=== PATIENT | female | born 1975 | race Two or more races ===

== ENCOUNTER → 2020-03-23 15:18 | Outpatient (BNVA) | payer OTHER, SELFPAY | PROVIDERS: PCP Internal Medicine; Referring Provider Internal Medicine; Visit Provider Nurse Practitioner | DX: R13.10 Dysphagia, unspecified (principal); J32.8 Other chronic sinusitis; R06.83 Snoring | CPT/HCPCS: 99212 ==

== ENCOUNTER 2020-05-09 07:46 | Outpatient (REF) | payer OTHER, SELFPAY ==
[2020-05-09 09:20] LABS: Alanine Aminotransferase 14 U/L (0-31); Albumin Level 3.9 g/dL (3.5-5.0); Alkaline Phosphatase 104 U/L (39-117); Anion Gap 10 (12-20); Aspartate Amino Transferase 17 U/L (5-31); Bilirubin Total 0.4 mg/dL (0.0-1.0); Blood Urea Nitrogen 10 mg/dL (9-16); Calcium 8.3 mg/dL (8.4-10.2); Carbon Dioxide 26 mmol/L (22-29); Chloride 105 mmol/L (96-108); Cholesterol 201 mg/dL; Estimated Glomerular Filt Rate > 60; Glucose Fasting 143 mg/dL (60-99); HDL Cholesterol 62 mg/dL; LDL Cholesterol Calculated 126 mg/dl; Potassium 4.2 mmol/l (3.3-5.1); Sodium 137 mmol/L (135-145); Triglycerides 67 mg/dL
== END 2020-05-09 07:47 | disposition home or self-care (01) ==
LOC: HO.LAB 07:46
PROVIDERS: Visit Provider Internal Medicine
DX: E78.00 Pure hypercholesterolemia, unspecified (principal)
CPT/HCPCS: 80053; 80061

== ENCOUNTER 2020-07-13 15:25 | Outpatient (REF) | payer OTHER, SELFPAY ==
[2020-07-16 11:41] LABS: C. trachomatis RNA TMA NOT DETECTED (NOT DETECTED); N. gonorrhoeae RNA TMA NOT DETECTED (NOT DETECTED)
== END 2020-07-13 15:26 | disposition home or self-care (01) ==
LOC: HO.LAB 15:25
PROVIDERS: Visit Provider Advanced Practice Midwife
DX: Z01.419 Encounter for gynecological examination (general) (routine) without abnormal findings (principal); Z20.2 Contact with and (suspected) exposure to infections with a predominantly sexual mode of transmission
CPT/HCPCS: 36415; 87491; 87591

== ENCOUNTER 2020-08-10 12:55 | Outpatient (REF) | payer OTHER, SELFPAY | END 2020-08-10 12:56 | disposition home or self-care (01) | LOC: HO.LNP 12:55 | PROVIDERS: PCP Internal Medicine; Visit Provider Surgery | DX: D17.20 Benign lipomatous neoplasm of skin and subcutaneous tissue of unspecified limb (principal); Z79.899 Other long term (current) drug therapy; Z87.891 Personal history of nicotine dependence | CPT/HCPCS: 11402; 88304; 99202 ==

== ENCOUNTER → 2020-08-24 14:21 | Outpatient (BNVA) | payer OTHER, SELFPAY | PROVIDERS: PCP Internal Medicine; Visit Provider Surgery | DX: Z48.817 Encounter for surgical aftercare following surgery on the skin and subcutaneous tissue (principal); Z87.2 Personal history of diseases of the skin and subcutaneous tissue | CPT/HCPCS: 99212 ==

== ENCOUNTER 2020-10-30 08:05 | Outpatient (REF) | payer OTHER, SELFPAY ==
--- NOTE | 2020-10-30 08:16 | ECG_ITS ---
Test Reason : CP Blood Pressure : / mmHG Vent. Rate : 065 BPM Atrial Rate : 065 BPM P-R Int : 136 ms QRS Dur : 098 ms QT Int : 390 ms P-R-T Axes : 016 001 014 degrees QTc Int : 405 ms Normal sinus rhythm Incomplete right bundle branch block Borderline ECG When compared to the previous EKG of Incomplete right bundle branch block noted Referred By: Eva Mtz Electronically Signed By:TERESITA ALBERT MD
[2020-10-30 09:14] LABS: Alanine Aminotransferase 17 U/L (0-31); Albumin Level 3.9 g/dL (3.5-5.0); Alkaline Phosphatase 100 U/L (39-117); Anion Gap 10 (12-20); Aspartate Amino Transferase 16 U/L (5-31); Bilirubin Total 0.7 mg/dL (0.0-1.0); Blood Urea Nitrogen 13 mg/dL (9-16); Calcium 8.9 mg/dL (8.4-10.2); Carbon Dioxide 24 mmol/L (22-29); Chloride 107 mmol/L (96-108); Cholesterol 228 mg/dL; Estimated Glomerular Filt Rate > 60; Glucose Fasting 186 mg/dL (60-99); HDL Cholesterol 50 mg/dL; LDL Cholesterol Calculated 158 mg/dl; Potassium 4.4 mmol/L (3.3-5.1); Sodium 137 mmol/L (135-145); Total Protein 6.8 g/dL (6.5-8.0); Triglycerides 101 mg/dL
== END 2020-10-30 08:06 | disposition home or self-care (01) ==
LOC: HO.LAB 08:05
PROVIDERS: PCP Internal Medicine; Visit Provider Internal Medicine
DX: E78.5 Hyperlipidemia, unspecified (principal); R07.9 Chest pain, unspecified
CPT/HCPCS: 36415; 80053; 80061; 93005

== ENCOUNTER 2020-11-02 07:26 | Outpatient (REF) | payer OTHER, SELFPAY ==
--- NOTE | ~2020-11-02 | MM_ITS ---
EXAMINATION: MM SCREENING DIGITAL BREAST TOMOSYNTHESIS, BILATERAL CLINICAL INFORMATION: Screening. Asymptomatic. The lifetime risk of breast cancer based on the Tyrer-Cuzick Model is 9.1%. COMPARISON: Mammography: October 30, 2018 and studies dating back to August 18, 2015 TECHNIQUE: Digital breast tomosynthesis is performed in both the craniocaudal and mediolateral oblique views along with computer-aided detection (CAD). Synthesized 2D images are generated from the tomosynthesis. FINDINGS: The breasts are heterogeneously dense, which may obscure small masses (ACR BI-RADS breast composition Category c). There are no significant masses, abnormal calcifications, or other abnormalities. MM/MM tomosynthesis screening BI IMPRESSION: There are no significant changes from prior study. ASSESSMENT: BI-RADS 1: Negative RECOMMENDATION: Routine annual mammography screening. This patient's information was entered into a reminder system with a target due date for their next mammogram.
== END 2020-11-02 07:27 | disposition home or self-care (01) ==
LOC: HO.MAMMO 07:26
PROVIDERS: PCP Internal Medicine; Visit Provider Advanced Practice Midwife
DX: Z12.31 Encounter for screening mammogram for malignant neoplasm of breast (principal)
CPT/HCPCS: 77063; 77067

== ENCOUNTER 2021-06-06 08:30 | Outpatient (REF) | payer OTHER, SELFPAY ==
[2021-06-06 09:44] LABS: Alanine Aminotransferase 23 U/L (0-31); Albumin Level 4.1 g/dL (3.5-5.0); Alkaline Phosphatase 106 U/L (39-117); Anion Gap 9 (12-20); Aspartate Amino Transferase 18 U/L (5-31); Bilirubin Total 0.7 mg/dL (0.0-1.0); Blood Urea Nitrogen 10 mg/dL (9-16); Calcium 9.5 mg/dL (8.4-10.2); Carbon Dioxide 29 mmol/L (22-29); Chloride 103 mmol/L (96-108); Cholesterol 274 mg/dL; Estimated Glomerular Filt Rate > 60; Glucose Fasting 164 mg/dL (60-99); HDL Cholesterol 62 mg/dL; LDL Cholesterol Calculated 190 mg/dl; Potassium 4.2 mmol/L (3.3-5.1); Sodium 137 mmol/L (135-145); Total Protein 7.7 g/dL (6.5-8.0); Triglycerides 110 mg/dL
[2021-06-06 10:53] LABS: Microalbum/Creatinine Ratio Ur 5.6 ug/mg cr
[2021-06-10 14:51] LABS: Vitamin D 25-OH, D2 <4 ng/mL; Vitamin D 25-OH, D3 15 ng/mL; Vitamin D 25-OH, Total 15 ng/mL (30-100)
== END 2021-06-06 08:31 | disposition home or self-care (01) ==
LOC: HO.LAB 08:30
PROVIDERS: PCP Internal Medicine; Visit Provider Internal Medicine
DX: R07.9 Chest pain, unspecified (principal); E78.5 Hyperlipidemia, unspecified; E55.9 Vitamin D deficiency, unspecified; E11.9 Type 2 diabetes mellitus without complications
CPT/HCPCS: 36415; 80053; 80061; 82043; 82306

== ENCOUNTER 2022-01-07 09:24 | Outpatient (REF) | payer OTHER, SELFPAY ==
[2022-01-07 10:21] LABS: Alanine Aminotransferase 17 U/L (0-31); Albumin Level 3.8 g/dL (3.5-5.0); Alkaline Phosphatase 92 U/L (39-117); Anion Gap 13 (12-20); Aspartate Amino Transferase 14 U/L (5-31); Bilirubin Total 0.4 mg/dL (0.0-1.0); Blood Urea Nitrogen 10 mg/dL (9-16); Calcium 8.6 mg/dL (8.4-10.2); Carbon Dioxide 24 mmol/L (22-29); Chloride 105 mmol/L (96-108); Cholesterol 202 mg/dL; Estimated Glomerular Filt Rate > 60; Glucose Fasting 189 mg/dL (60-99); HDL Cholesterol 57 mg/dL; LDL Cholesterol Calculated 128 mg/dl; Potassium 4.4 mmol/L (3.3-5.1); Sodium 138 mmol/L (135-145); Total Protein 6.7 g/dL (6.5-8.0); Triglycerides 85 mg/dL
[2022-01-07 10:41] LABS: Vitamin D 25-OH Total 18.7 ng/mL (>30)
== END 2022-01-07 09:25 | disposition home or self-care (01) ==
LOC: HO.LAB 09:24
PROVIDERS: PCP Internal Medicine; Visit Provider Internal Medicine
DX: E78.5 Hyperlipidemia, unspecified (principal); E55.9 Vitamin D deficiency, unspecified; E11.69 Type 2 diabetes mellitus with other specified complication; E66.9 Obesity, unspecified
CPT/HCPCS: 36415; 80053; 80061; 82306

== ENCOUNTER 2022-03-11 13:21 | Outpatient (REF) | payer OTHER, SELFPAY ==
[2022-03-11 14:44] LABS: Microalbum/Creatinine Ratio Ur 4.1 ug/mg cr
== END 2022-03-11 13:22 | disposition home or self-care (01) ==
LOC: HO.LAB 13:21
PROVIDERS: PCP Internal Medicine; Visit Provider Internal Medicine
DX: E11.9 Type 2 diabetes mellitus without complications (principal)
CPT/HCPCS: 82043

== ENCOUNTER 2022-04-01 09:24 | Outpatient (REF) | payer OTHER, SELFPAY ==
[2022-04-01 17:14] LABS: CT PCR NOT DETECTED (Not Detect.); NG PCR NOT DETECTED (Not Detect.)
[2022-04-02 10:30] LABS: BV Int Neg Control Negative (Negative); BV Int Pos Control Positive (Positive)
[2022-04-04 02:06] LABS: HPV mRNA E6/E7 rflx Not Detected (Not Detected)
== END 2022-04-01 09:25 | disposition home or self-care (01) ==
LOC: HO.LNP 09:24
PROVIDERS: Visit Provider Advanced Practice Midwife
DX: Z01.419 Encounter for gynecological examination (general) (routine) without abnormal findings (principal); Z11.51 Encounter for screening for human papillomavirus (HPV)
CPT/HCPCS: 87480; 87491; 87510; 87591; 87624; 87660; 88142

== ENCOUNTER 2022-04-10 14:23 | Outpatient (REF) | payer OTHER, SELFPAY ==
--- NOTE | ~2022-04-10 | MM_ITS ---
EXAMINATION: MM DIAGNOSTIC DIGITAL BREAST TOMOSYNTHESIS, BILATERAL US DIAGNOSTIC ULTRASOUND BREAST, BILATERAL CLINICAL INFORMATION: Due for yearly. 4 month history pain superior left breast. 3 mm palpable area below nipple right breast on clinical exam. The lifetime risk of breast cancer based on the Tyrer-Cuzick Model is 7%. COMPARISON: Mammography: 11/02/2020, 10/30/2018, 09/26/2016 TECHNIQUE: Digital breast tomosynthesis is performed in both the craniocaudal and mediolateral oblique views along with computer-aided detection (CAD). Synthesized 2D images are generated from the tomosynthesis. Additional right rolled CC x2 views are obtained. Ultrasound bilateral breasts is performed targeted to the areas of clinical concern. Grayscale imaging and color Doppler are performed without and with harmonics. FINDINGS: There are scattered areas of fibroglandular density (ACR BI-RADS breast composition Category b). There are no significant masses, abnormal calcifications, or other abnormalities. Parenchymal pattern is similar to prior studies. There is no developing density or architectural abnormality. The axilla and skin contours are unremarkable. No skin thickening or coarsening of the Faisal's ligaments. No significant changes. Ultrasound bilateral breasts demonstrate no cystic or solid mass, architectural abnormality, or focal duct ectasia. No skin thickening or edema tracking in soft tissue planes. Results are discussed with the patient at time of visit. MM/MM tomosynthesis diagnostic BI IMPRESSION: -No mammographic evidence of malignancy or inflammatory changes. -Unremarkable bilateral targeted breast ultrasound. ASSESSMENT: BI-RADS 1: Negative RECOMMENDATION: 1. Patient's clinical findings should be managed based on the clinical impression. If there is clinical concern for persistent palpable abnormality, further evaluation may be considered with surgical consult. Decision to proceed with biopsy should be based on clinical grounds and degree of clinical concern. 2. Otherwise, routine annual screening mammography. This patient's information was entered into a reminder system with a target due date for their next mammogram.
== END 2022-04-10 14:24 | disposition home or self-care (01) ==
LOC: HO.MAMMO 14:23
PROVIDERS: Visit Provider Advanced Practice Midwife
DX: N64.4 Mastodynia (principal)
CPT/HCPCS: 76642; 77062; 77066

== ENCOUNTER 2022-05-06 12:45 | Outpatient (REF) | payer OTHER, SELFPAY ==
--- NOTE | ~2022-05-06 | US_ITS ---
EXAMINATION: US PELVIS CLINICAL INFORMATION: Enlarged uterus; the last menstrual period was on 04/19/2022. COMPARISON: Pelvic ultrasound dated 04/30/2018. TECHNIQUE: Ultrasound of the pelvis is performed using both transabdominal and transvaginal transducers along with Doppler. Transvaginal imaging is performed due to inadequate visualization transabdominally. Imaging is limited by body habitus and overlapping bowel gas. FINDINGS: Uterus: The uterus is anteverted and measures 11.9 x 4.9 x 7.3 cm. The double wall endometrial thickness is 2.2 cm. The uterus is smooth in contour and has normal myometrial echogenicity. FIBROIDS: There are 2 fibroids seen. 1. Location: Leftward uterine body, myometrial. Size: 1.3 x 1.1 x 1.5 cm. Prior: 1.3 x 1.5 x 1.1 cm. Fibroid characteristics: Heterogeneously hypoechoic. 2. Location: Posterior fundus, myometrial. Size: 1.9 x 2.0 x 2.4 cm. Fibroid characteristics: Heterogeneously hypoechoic. Adnexa: Both ovaries are visualized. There is normal color flow to the adnexa. There is no ovarian torsion. There is no pelvic ascites or fluid collection. Right ovary measures 2.3 x 1.7 x 2.4 cm, volume 5.1 mL. Left ovary measures 2.3 x 1.7 x 2.1 cm, volume 4.3 mL. US/US pelvic and transvaginal IMPRESSION: 1. There are uterine fibroids, as detailed. 2. There is abnormal thickening of the endometrial stripe to 2.1 cm. Gynecology evaluation and management are recommended, with consideration for tissue sampling, if clinically indicated.
[2022-05-06 14:41] LABS: Alanine Aminotransferase 20 U/L (0-31); Albumin Level 4.2 g/dL (3.5-5.0); Alkaline Phosphatase 99 U/L (39-117); Anion Gap 11 (12-20); Aspartate Amino Transferase 18 U/L (5-31); Bilirubin Total 0.5 mg/dL (0.0-1.0); Blood Urea Nitrogen 8 mg/dL (9-16); Calcium 9.6 mg/dL (8.4-10.2); Carbon Dioxide 26 mmol/L (22-29); Chloride 102 mmol/L (96-108); Cholesterol 267 mg/dL; Estimated Glomerular Filt Rate > 60; Glucose Fasting 144 mg/dL (60-99); HDL Cholesterol 59 mg/dL; LDL Cholesterol Calculated 184 mg/dl; Sodium 135 mmol/L (135-145); Total Protein 7.2 g/dL (6.5-8.0); Triglycerides 123 mg/dL; Vitamin D 25-OH Total 43.2 ng/mL (>30)
[2022-05-06 14:43] LABS: Syphilis Screen Nonreactive (Nonreactive)
[2022-05-07 08:26] LABS: HBsAGNum1 0.35 S/CO (0.00-0.99); HIV AB/AG Nonreactive (Nonreactive); HIV Num 1 0.22 S/CO (0.00-0.99); Hepatitis B Surface Antigen Negative (Negative); ~HepC Num1 0.09 S/CO (0.00-0.79); ~Hepatitis C Antibody Nonreactive (Nonreactive)
== END 2022-05-06 12:46 | disposition home or self-care (01) ==
LOC: HO.HMGCX 12:45
PROVIDERS: Absent Provider Internal Medicine; PCP Internal Medicine; Referring Provider Advanced Practice Midwife; Visit Provider Obstetrics & Gynecology
DX: Z11.4 Encounter for screening for human immunodeficiency virus [HIV] (principal); Z11.3 Encounter for screening for infections with a predominantly sexual mode of transmission; N85.2 Hypertrophy of uterus; E11.69 Type 2 diabetes mellitus with other specified complication; E66.01 Morbid (severe) obesity due to excess calories; Z68.41 Body mass index [BMI] 40.0-44.9, adult; E78.5 Hyperlipidemia, unspecified; E55.9 Vitamin D deficiency, unspecified; Z87.42 Personal history of other diseases of the female genital tract
CPT/HCPCS: 36415; 76830; 76856; 80053; 80061; 82306; 86780; 86803; 87340; 87389

== ENCOUNTER → 2022-05-15 12:51 | Outpatient (BNVA) | payer OTHER, SELFPAY | PROVIDERS: PCP Internal Medicine; Referring Provider Internal Medicine; Visit Provider Surgery | DX: N63.10 Unspecified lump in the right breast, unspecified quadrant (principal); D17.24 Benign lipomatous neoplasm of skin and subcutaneous tissue of left leg | CPT/HCPCS: 99202 ==

== ENCOUNTER 2022-05-20 16:39 | Emergency (ER) | payer OTHER, SELFPAY ==
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
[2022-05-20 16:54] VITALS: BP 145/85; BP 150/96; PULSE 102; PULSE 94; RESP 16; TEMP 36.4; O2SAT 100; O2SAT 98; BMI 39.6
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
== END 2022-05-20 20:00 | disposition home or self-care (01) ==
PROVIDERS: Emergency Provider Internal Medicine; PCP Internal Medicine
DX: S09.90XA Unspecified injury of head, initial encounter (principal); V43.52XA Car driver injured in collision with other type car in traffic accident, initial encounter; M79.10 Myalgia, unspecified site; Y93.89 Activity, other specified; Y92.410 Unspecified street and highway as the place of occurrence of the external cause; Y99.9 Unspecified external cause status
CPT/HCPCS: 70450; 70486; 72125; 73000; 73030; 99283; 99284

== ENCOUNTER → 2022-06-18 14:25 | Outpatient (BNVA) | payer OTHER, SELFPAY | PROVIDERS: PCP Internal Medicine; Visit Provider Advanced Practice Midwife | DX: Z32.02 Encounter for pregnancy test, result negative (principal); N85.2 Hypertrophy of uterus | CPT/HCPCS: 81025 ==

== ENCOUNTER 2022-07-02 07:46 | Outpatient (REF) | payer OTHER, SELFPAY ==
[2022-07-04 11:34] LABS: HPV mRNA E6/E7 rflx Not Detected (Not Detected)
== END 2022-07-02 07:47 | disposition home or self-care (01) ==
LOC: HO.LNP 07:46
PROVIDERS: PCP Internal Medicine; Visit Provider Obstetrics & Gynecology
DX: N93.9 Abnormal uterine and vaginal bleeding, unspecified (principal)
CPT/HCPCS: 58100; 87624; 88142; 88305; 99212

== ENCOUNTER 2022-07-02 08:48 | Outpatient (REF) | payer OTHER, SELFPAY ==
[2022-07-02 09:37] LABS: Hematocrit 39.4 % (37.0-47.0); Hemoglobin 12.9 g/dl (12.0-16.0); Mean Corpuscular HGB Conc 32.7 g/dl (31.0-35.0); Mean Corpuscular Hemoglobin 28.4 pg (27.0-33.0); Mean Corpuscular Volume 86.8 fL (80.0-98.0); Mean Platelet Volume 10.3 fL (9.4-12.3); Platelet Count 280 X10*3/uL (160-400); Red Blood Count 4.54 X10*6/uL (4.20-5.50); Red Cell Distribution Width 13.1 % (11.0-16.0); White Blood Count 8.8 X10*3/uL (4.8-10.8)
[2022-07-02 10:45] LABS: HCG Quantitative < 2 mIU/mL; TSH reflex Free T4 3.79 uIU/mL (0.32-4.0)
[2022-07-02 15:13] LABS: CT PCR NOT DETECTED (Not Detect.); NG PCR NOT DETECTED (Not Detect.)
== END 2022-07-02 08:49 | disposition home or self-care (01) ==
LOC: HO.LAB 08:48
PROVIDERS: Visit Provider Obstetrics & Gynecology
DX: N93.9 Abnormal uterine and vaginal bleeding, unspecified (principal); Z11.3 Encounter for screening for infections with a predominantly sexual mode of transmission
CPT/HCPCS: 0353U; 84443; 84702; 85027

== ENCOUNTER → 2022-07-25 15:00 | Outpatient (BNVA) | payer OTHER, SELFPAY | PROVIDERS: PCP Internal Medicine; Visit Provider Obstetrics & Gynecology | DX: N93.9 Abnormal uterine and vaginal bleeding, unspecified (principal); D25.9 Leiomyoma of uterus, unspecified | CPT/HCPCS: 99212 ==

== ENCOUNTER 2023-02-03 07:25 | Outpatient (REF) | payer OTHER, SELFPAY ==
[2023-02-03 08:43] LABS: Alanine Aminotransferase 9 U/L (0-31); Albumin Level 3.9 g/dL (3.5-5.0); Alkaline Phosphatase 92 U/L (39-117); Anion Gap 12 (12-20); Aspartate Amino Transferase 11 U/L (5-31); Bilirubin Total 0.3 mg/dL (0.0-1.0); Blood Urea Nitrogen 11 mg/dL (9-16); Calcium 9.1 mg/dL (8.4-10.2); Carbon Dioxide 25 mmol/L (22-29); Chloride 108 mmol/L (96-108); Cholesterol 172 mg/dL (<200); Estimated Glomerular Filt Rate > 60; Glucose Fasting 133 mg/dL (60-99); HDL Cholesterol 37 mg/dL (>40); LDL Cholesterol Calculated 109 mg/dL (<100); Potassium 3.6 mmol/L (3.3-5.1); Sodium 141 mmol/L (135-145); Total Protein 6.9 g/dL (6.5-8.0); Triglycerides 132 mg/dL (<150)
== END 2023-02-03 07:26 | disposition home or self-care (01) ==
LOC: HO.LAB 07:25
PROVIDERS: PCP Internal Medicine; Visit Provider Internal Medicine
DX: E55.9 Vitamin D deficiency, unspecified (principal); E78.5 Hyperlipidemia, unspecified
CPT/HCPCS: 36415; 80053; 80061; 82306

== ENCOUNTER 2023-02-03 17:07 | Outpatient (AMB) | payer OTHER, SELFPAY ==
[2023-02-03 17:09] VITALS: BP 122/84; BMI 34.6
--- NOTE | 2023-02-03 17:09 | A.OFFPC_ITS ---
Vital Signs 02/03/23 17:09 Height 5 ft 2 in Weight 189 lb BMI 34.6 BP 122/84 Blood Pressure Location Lt brachial Position Sitting Intake Visit Reasons: physical Intake Note: Patient here for a physical exam, c/o abdminal pain Technical Services Specialist Required: No Accompanied by: Self / Same As Patient Allergies aspirin [ASPIRIN] Allergy (Intermediate, Verified 02/03/23 17:18) SWELLING, anaphylaxis/swelling naproxen [NAPROXEN] Allergy (Intermediate, Verified 02/03/23 17:18) LIP SWELLING, swelling Medication List - Last Reconciled 02/03/23 by Eva Mtz MD acetaminophen (Tylenol Extra Strength) 500 mg PO Q6H PRN atorvastatin 40 mg PO BEDTIME 90 days azelastine 2 sprays intranasal BID blood sugar diagnostic (FreeStyle Lite Strips) Use 1 test strip once a day blood-glucose meter (FreeStyle Lite Meter kit) As directed cholecalciferol (vitamin D3) 50 mcg PO DAILY 90 days cyclobenzaprine 10 mg PO DAILY dulaglutide (Trulicity) 0.75 mg (0.5 mL) subcut QWEEK 30 days lancets (FreeStyle Lancets) Use 1 lancet once a day lidocaine 5% (Lidoderm) 1 patch topical DAILY PRN MDD remove after 12 hours metformin 500 mg PO BID 90 days omeprazole 20 mg PO DAILY 90 days triamcinolone acetonide 0.5% 1 appl topical DAILY 30 days Tobacco use date assessed: 08/26/22 Dental Screening Dental Screen Date: 02/03/23 Did you have a dental visit in the last 12 months?: Yes Did you have a dental problem in the last 6 months where you did not have access to dental care?: No Was dental information given to patient?: Patient has dentist HPI HPI Comments History of Present Illness Details This is a 47-year-old female with diabetes mellitus type 2 that comes for her physical exam. A1c within goal. LDL not on goal and I will increase atorvastatin from 40 mg to 80 mg. Mammogram done March 2022 and was normal. Pap smear done June 2022 and was normal with HPV negative. Has never had a colonoscopy and will order Cologuard. No chest pain or shortness of breath. Complains of abdominal pain that is diffuse but more prominent in right upper quadrant.. [facility] Medical History Lipoma of thigh Mild recurrent major depression Severe obesity with body mass index (BMI) of 35.0 to 39.9 with comorbidity Diabetes mellitus type 2 in obese Chest pain Lipoma of arm History of abnormal cervical Pap smear Morbid obesity with BMI of 40.0-44.9, adult Impaired glucose tolerance Dyslipidemia Surgical History S/P tubal ligation History of esophagogastroduodenoscopy (EGD) (~2019) Family History Father HTN (hypertension) Mother Diabetes Arthritis of knee Cancer Paternal Grandfather Heart attack Paternal Aunt Cancer Maternal Uncle Cancer Social History Household Members: Children Household Members Other:: daughter and son Housing: Apartment Alcohol intake: former Patient Tobacco Use Status: Former Tobacco user Tobacco use type: Cigarette Years Smoked: 25 years e-Cigarette/Vaping Use: Never Used Second Hand Smoke Exposure: Yes service: No Current occupational status: employed Current occupational exposures/hazards: No Cognitive needs: No Hearing needs: No Vision needs: No Female Reproductive History Menstrual Age of Menarche: 12 Questionnaire Thrive Questionnaire Date Thrive assessed: 08/26/22 ODALYS-7 AMB Questionnaire ODALYS-7 Date ODALYS - 7 assessed: 08/26/22 Source: Developed by Drs. Gaurav Mcintyre, Karen Israel, Krystian Adams and colleagues, with an educational sukh from [employer]. Review of Systems Const All systems reviewed & are unremarkable except as noted in HPI and below Eyes Reports no additional complaints, Denies change in vision and Denies other visual disturbances Card Denies chest pain at rest, Denies chest pain with activity, Denies edema, Denies irregular heart rhythm, Denies claudication, Denies dyspnea, Denies dyspnea on exertion, Denies orthopnea, Denies paroxysmal nocturnal dyspnea and Denies slow heart rate Resp Denies cough, Denies dyspnea and Denies dyspnea on exertion GI Denies abdominal pain, Denies change in bowel habits, Denies excessive flatus, Denies nausea and Denies vomiting Denies urinary incontinence, Denies urinary hesitancy and Denies urinary urgency Musc Denies abnormal gait, Denies atrophy, Denies deformity and Denies limited range of motion Skin/Breast Denies bleeding lesions, Denies changing lesions and Denies rash Neuro Denies abnormal gait and Denies lack of coordination Physical exam (Primary Care) Vital Signs: Last Vital Signs BP 122/84 02/03/23 17:09 BMI result Body Mass Index 34.6 Tobacco/Smoking Status: Tobacco use Status Tobacco use date assessed 08/26/22 02/03/23 17:13 Patient Tobacco Use Status Former Tobacco user 02/03/23 17:13 Tobacco use type Cigarette 02/03/23 17:13 e-Cigarette/Vaping Use Never Used 02/03/23 17:13 Thrive Assessment: Date of Thrive Assessment Date Thrive assessed 08/26/22 02/03/23 17:13 Const Orientation/consciousness: patient oriented x3 HENMT Head: Yes normal to inspection, Yes normocephalic and Yes atraumatic Ears: external ears normal Mouth: lip normal Eyes General: appearance normal, both eyes and all related structures Eyelids: Yes eyelids normal Conjunctivae: conjunctivae normal Neck Neck: Yes normal visual inspection and Yes supple Resp Effort & Inspection: normal respiratory effort Auscultation: clear to auscultation bilaterally Cardio Jugular venous distension: no JVD Rate: regular rate Rhythm: regular rhythm Heart sounds: S1 normal heart sound present and S2 normal heart sound present GI Inspection: Yes normal to inspection Palpation (GI): Soft to palpation and nontender Auscultation: normal bowel sounds Skin General skin exam: no rashes or lesions noted Neuro General: patient oriented x3 and no focal motor deficits Extrem General: Yes full ROM Psych Appearance: grossly normal Results AMB Hemoglobin A1c AMB Hemoglobin A1c 5.6 % Last Edit by GILDA Hartley on 02/03/23 17:2 8 Results Reviewed Results Reviewed: Laboratory Last Values Hgb A1c (Clinic) 5.6 % (4.0-6.0) 02/03/23 17:23 Assessment and Plan Assessment & Plan (1) Physical exam: Code(s): Z00.00 - Encounter for general adult medical examination without abnormal findings Plan: Repeat in a year (2) Diabetes mellitus type 2 in obese: Code(s): E11.69 - Type 2 diabetes mellitus with other specified complication; E66.9 - Obesity, unspecified Plan: Continue metformin and Trulicity. A1c goal is equal or less than 7%. Orders: Orders AMB Hemoglobin A1c Today E11.69 - Type 2 diabetes mellitus with other specified complication, E66.9 - Obesity, unspecified US abdomen complete Today R10.9 - Unspecified abdominal pain Lipid Panel 4 Months E78.5 - Hyperlipidemia, unspecified Microalbumin, Random (w Creat) 4 Months E11.9 - Type 2 diabetes mellitus without complications Vitamin D 25-OH Total 4 Months E55.9 - Vitamin D deficiency, unspecified Comprehensive [place]. Panel Fast 4 Months R10.9 - Unspecified abdominal pain Referrals Cologuard Test Z12.11 - Encounter for screening for malignant neoplasm of colon, Z12.12 - Encounter for screening for malignant neoplasm of rectum Medications: New atorvastatin 80 mg PO BEDTIME 90 tabs 0RF 90 days Discontinued atorvastatin Discontinued Reason: Duplicate 40 mg PO BEDTIME 90 tabs 1RF 90 days Coding Level of Care Code Est Pt Prev Care 40-64y(92440) Diagnoses Physical exam Z00.00 Diabetes mellitus type 2 in obese E11.69; E66.9 Time Spent (min) 30
== END 2023-02-03 17:30 | disposition home or self-care (01) ==
PROVIDERS: PCP Internal Medicine; Visit Provider Internal Medicine
DX: Z00.00 Encounter for general adult medical examination without abnormal findings (principal); E11.69 Type 2 diabetes mellitus with other specified complication; E66.9 Obesity, unspecified; Z68.34 Body mass index [BMI] 34.0-34.9, adult
CPT/HCPCS: 83036; 99396

== ENCOUNTER 2023-02-19 12:58 | Emergency (ER) | payer OTHER, SELFPAY ==
--- NOTE | ~2023-02-19 | CT_ITS ---
EXAMINATION: CT ABDOMEN AND PELVIS WITH CONTRAST CLINICAL INFORMATION: Abdominal pain COMPARISON: Previous CT of the abdomen and pelvis most recent June 2017 and pelvic ultrasound April 2022 TECHNIQUE: Multidetector volumetric images were obtained from the superior aspect of the liver through the pubic symphysis following administration 85 mL of Omnipaque 350 intravenous contrast. Sagittal and coronal reformatted images were obtained on the technologist's workstation. Oral contrast: Yes This CT examination was performed using dose optimization techniques as appropriate, variously including the following: *Automated exposure control *Adjustment of mA and/or kV according to patient size (this includes techniques or standardized protocols for targeted exams where dose is matched to indication/reason for exam; i.e. extremities or head) *Use of iterative reconstruction technique DLP: 647 mGy-cm FINDINGS: LUNG BASES: The visualized lung bases are unremarkable. LIVER, GALLBLADDER, AND BILIARY TREE: The liver is normal in size, shape, and attenuation. No focal hepatic lesion or biliary ductal dilatation is present. The gallbladder has been removed. PANCREAS: Unremarkable. SPLEEN: Unremarkable. ADRENAL GLANDS: Unremarkable. KIDNEYS AND URETERS: The kidneys are normal in size, shape, and attenuation. No hydronephrosis, hydroureter, or calculi seen. No perinephric stranding. BLADDER: Not optimally distended GASTROINTESTINAL TRACT: Diverticulosis of the colon. No evidence diverticulitis. The small and large bowel are otherwise unremarkable. The appendix is unremarkable. ABDOMINAL WALL: No significant hernia is appreciated. LYMPH NODES: Normal. VASCULAR: Unremarkable. PELVIC VISCERA: Prominent heterogeneous uterus probably representing fibroids. Upper normal thickness endometrium measuring 1.6 cm. Adnexa are unremarkable. OSSEOUS STRUCTURES: Unremarkable. CT/CT abdomen pelvis w IV con IMPRESSION: No acute findings. Diverticulosis. Fibroid uterus. Fleischner guidelines were followed.
[2023-02-19 13:17] VITALS: BP 126/78; PULSE 72; RESP 16; TEMP 36.6; O2SAT 98; BMI 33.7
--- NOTE | 2023-02-19 13:17 | ED.ABDPAIN ---
HPI - Abdominal Pain General Chief Complaint: Abdominal Pain Stated Complaint: Stomach Pain Time Seen by Provider: 02/19/23 16:03 Source: patient Mode of arrival: ambulatory Limitations: no limitations History of Present Illness HPI narrative: Patient is a 47-year-old female who presents emergency department for evaluation of abdominal pain with nausea and vomiting. Onset of symptoms was 1 week ago. She has a history of diabetes she has been on metformin for some time and does attribute having some abdominal discomfort at baseline due to metformin. However she did also began taking Trulicity 2 weeks ago. Reports primarily upper abdominal pain with nausea and in vomiting, on able to tolerate oral intake. Denies hematemesis, lower abdominal pain, constipation, diarrhea, hematochezia, melena, genitourinary symptoms. She denies fevers, chills, chest pain, shortness of breath, difficulty breathing. Related Data Home Medications Medication Instructions Recorded Confirmed azelastine 137 mcg (0.1 %) nasal 2 spray intranasal BID 06/12/20 02/03/23 spray aerosol cyclobenzaprine 10 mg tablet 10 mg PO DAILY 06/12/20 02/03/23 Previous Rx's Medication Instructions Recorded blood sugar diagnostic (FreeStyle #100 ea 06/26/21 Lite Strips) blood-glucose meter (FreeStyle #1 ea 06/26/21 Lite Meter kit) lancets 28 gauge (FreeStyle #100 ea 06/26/21 Lancets) omeprazole 20 mg capsule,delayed 20 mg PO DAILY 90 days #90 caps 06/26/21 release triamcinolone acetonide 0.5 % 1 appl topical DAILY 30 days #15 01/22/22 topical cream grams cholecalciferol (vitamin D3) 50 50 mcg PO DAILY 90 days #90 caps 03/27/22 mcg (2,000 unit) capsule acetaminophen 500 mg tablet 500 mg PO Q6H PRN fever or pain 05/20/22 (Tylenol Extra Strength) #14 tabs lidocaine 5 % topical patch 1 patch topical DAILY PRN pain #30 05/20/22 (Lidoderm) ea metformin 500 mg tablet 500 mg PO BID 90 days #180 tabs 06/14/22 dulaglutide 0.75 mg/0.5 mL 0.75 mg (0.5 mL) subcut QWEEK 30 12/19/22 subcutaneous pen injector days #2.5 mL (Trulicity) atorvastatin 80 mg tablet 80 mg PO BEDTIME 90 days #90 tabs 02/03/23 ondansetron 4 mg disintegrating 4 mg PO Q8H PRN nausea and 02/19/23 tablet vomiting #14 tabs Allergies Allergy/AdvReac Type Severity Reaction Status Date / Time aspirin [ASPIRIN] Allergy Intermediate SWELLING, Verified 02/19/23 13:21 anaphylaxis/swelling naproxen [NAPROXEN] Allergy Intermediate LIP Verified 02/19/23 13:21 SWELLING, swelling Review of Systems Review of Systems Yes all other systems are reviewed and are negative [facility] Past Medical History Attestation statement: The following information was validated with the patient. Source: old records reviewed Medical History Lipoma of thigh Mild recurrent major depression Severe obesity with body mass index (BMI) of 35.0 to 39.9 with comorbidity Diabetes mellitus type 2 in obese Chest pain Lipoma of arm History of abnormal cervical Pap smear Morbid obesity with BMI of 40.0-44.9, adult Impaired glucose tolerance Dyslipidemia Surgical History S/P tubal ligation History of esophagogastroduodenoscopy (EGD) (~2019) Family History Family History Father HTN (hypertension) Mother Diabetes Arthritis of knee Cancer Paternal Grandfather Heart attack Paternal Aunt Cancer Maternal Uncle Cancer Social History Social History Household Members: Children Household Members Other:: daughter and son Housing: Apartment Alcohol intake: current Alcohol intake frequency: holidays/special occasions only Patient Tobacco Use Status: Former Tobacco user Tobacco use type: Cigarette Years Smoked: 25 years Smoked in Last 30 Days: Yes e-Cigarette/Vaping Use: Never Used Second Hand Smoke Exposure: Yes Use of substances other than those prescribed or required for medical reasons: Yes Substance Use Type: Marijuana Advance Directives: No Advance Directives Information Provided: No service: No Current occupational status: employed Current occupational exposures/hazards: No Cognitive needs: No Hearing needs: No Vision needs: No Physical Exam ED Vital Signs: Vital Signs - 24 hr 02/19/23 13:17 02/19/23 16:03 Temperature 98 F Pulse Rate 72 59 Respiratory Rate 16 18 Blood Pressure 126/78 147/94 H Pulse Oximetry 98 99 Oxygen Delivery Method Room Air Room Air BMI result Body Mass Index 33.7 Appearance: Alert.?Oriented to person, place and time. No acute distress.?Normal affect. Eyes: Pupils equal, round and reactive to light.? ENT: Pharynx normal.?? Neck: Normal inspection.? Neck supple.?? CVS: Heart sounds normal. Normal heart rate and rhythm.? Pulses normal.?? Respiratory: No respiratory distress.? Lung sounds clear to auscultation bilaterally?? Abdomen: Soft with upper abdominal tenderness, lower abdomen benign. No rigidity. No guarding. No rebound tenderness. Negative Juan sign. Normoactive bowel sounds. No pulsatile mass.?? Skin: Skin warm and dry.? Normal skin color.? Extremities: No lower extremity edema.? Neuro: Moves all extremities spontaneously. Sensation intact bilaterally. Ambulates with normal steady gait. Course Course Course Narrative: RME:?47 yo F pmhx diabetes, HDL, fibromyalgia presents today diffuse abd pain, nausea, nonbloody emesis x1 week. Reports 10/10 pain. hx of cholecystectomy. No sick contacts. No etoh use. Abd soft, diffusely TTP. No rebound or guarding. +BS. Labs, UA, u preg, ct abd/pelvis Full HPI, ROS and PE to be performed by the primary ED provider. Reevaluation(s) Reevaluation #1: CT of the abdomen is without acute abnormality diverticulosis but no evidence of diverticulitis, fibroid uterus present. Reviewed these findings with patient. Symptoms most likely related to Trulicity verses gastritis or viral syndrome. Tolerating fluids and crackers while in the emergency department. Advised conservative treatment rest, hydration, bland diet, outpatient follow-up with her primary care provider. Reviewed worrisome signs and symptoms that would warrant re-evaluation in the emergency department. All questions answered. Stable for discharge. Time: 18:09 Medical Decision Making Medical Decision Making MDM Narrative: Patient is a 47-year-old female with past medical history of hyperlipidemia, fibro myalgia, obesity, type 2 diabetes, GERD presenting to emergency department for evaluation of abdominal pain with nausea/vomiting. At the time my examination she is overall well appearing but does appear to have discomfort particularly upon palpation of the abdomen as per physical examination. She is afebrile without tachycardia. She has no respiratory distress. Reviewed labs obtained prior to my evaluation CBC reveals no leukocytosis, no anemia, CMP is unremarkable and within normal limits, lipase within normal limits. Urinalysis without evidence of infection or microscopic hematuria, urine appears concentrated which is likely due to dehydration with persistent nausea and vomiting. CT of the abdomen and pelvis has been ordered but not yet obtained. I believe that the recent addition of Trulicity may be attributing to her symptoms however she does have notable tenderness upon examination. Will trial 1 L normal saline IV, Zofran IV, and morphine IV. Differential Diagnosis Differential Diagnoses: The differential diagnosis associated with the presentation includes (Medication side effect, gastritis, GERD, PUD, cholecystitis, cholelithiasis, pancreatitis. Less likely appendicitis, diverticulitis, colitis, bowel obstruction, mesenteric ischemia) Admission/Observation Consideration of admission/observation: Escalation of care including admission/observation considered (I considered admission for abdominal pain, see course narrative for further detail) Lab Data MDM Lab Attestation statement: I reviewed the patient's lab results. (See narrative above for further detail) 02/19/23 14:26 02/19/23 14:26 Labs: Lab Results 02/19/23 Range/Units 14:26 WBC 9.0 (4.8-10.8) X10*3/uL RBC 4.94 (4.20-5.50) X10*6/uL Hgb 14.9 (12.0-16.0) g/dl Hct 43.1 (37.0-47.0) % MCV 87.2 (80.0-98.0) fL MCH 30.2 (27.0-33.0) pg MCHC 34.6 (31.0-35.0) g/dl RDW 13.0 (11.0-16.0) % Plt Count 257 (160-400) X10*3/uL MPV 10.4 (9.4-12.3) fL Immature Gran % (Auto) 0.2 (0.0-0.4) % Neut % (Auto) 57.8 (45-73) % Lymph % (Auto) 30.3 (20-40) % [place] % (Auto) 9.8 (2-11) % Eos % (Auto) 1.6 (0-4) % Baso % (Auto) 0.3 (0-2) % Lymph # (Auto) 2.7 (1.2-4.9) X10*3/uL [place] # (Auto) 0.9 (0.1-1.2) X10*3/uL Eos # (Auto) 0.1 (0.0-0.4) X10*3/uL Baso # (Auto) 0.0 (0.0-0.2) X10*3/uL Abs Immat Gran (auto) 0.02 (0.00-0.03) X10*3/uL Absolute Neuts (auto) 5.2 (2.0-8.3) x10*3/uL Absolute Nucleated RBC 0.000 (0.0-0.012) X10*3/uL Nucleated RBC % (auto) 0.0 (0.0-0.2) /100WBC Sodium 139 (135-145) mmol/L Potassium 3.8 (3.3-5.1) mmol/L Chloride 104 (96-108) mmol/L Carbon Dioxide 26 (22-29) mmol/L Anion Gap 13 (12-20) BUN 9 (9-16) mg/dL Creatinine 0.82 (0.5-1.4) mg/dL Estim Creat Clear Calc 84.9 Estimated GFR > 60 Random Glucose 112 (60-115) mg/dL Calcium 9.7 D (8.4-10.2) mg/dL Magnesium 2.1 (1.6-2.6) mg/dL Total Bilirubin 0.6 (0.0-1.0) mg/dL AST 16 (5-31) U/L ALT 13 (0-31) U/L Alkaline Phosphatase 110 (39-117) U/L Total Protein 7.9 (6.5-8.0) g/dL Albumin 4.4 (3.5-5.0) g/dL Lipase 53 (8-78) U/L Urine Color Dark Yellow Urine Appearance Cloudy Urine pH 5.5 (5.0-9.0) Ur Specific [place] >= 1.030 H (1.005-1.025) Urine Protein 30 (1+) H (Neg-Trace) mg/dL Urine Glucose (UA) Negative (Negative) mg/dL Urine Ketones 15 (Negative) mg/dL Urine Blood Negative (Negative) Urine Nitrite Negative (Negative) Ur Leukocyte Esterase Negative (Negative) Urine RBC 0-2 (0-2) /HPF Urine WBC 0-5 (0-5) /HPF Ur Squamous Epith Cells 3-5 (0-2) /HPF Urine Bacteria Trace (None Seen) Hyaline Casts 3-5 (0-2) /LPF Urine Test NEGATIVE (NEGATIVE) Radiology Impression Discussion of test interpretation with radiology: I have reviewed the radiologist's reading. Radiologist Impression: CT/CT abdomen pelvis w IV con IMPRESSION: No acute findings. Diverticulosis. Fibroid uterus. Fleischner guidelines were followed. Independent Historian Clinical information obtained from an independent historian. History obtained from or confirmed by: Other (Daughter present at bedside who confirms history) External Record Review External record reviewed: Outpatient record and Prior outpatient labs Medications Administered Discontinued Medications Generic Name Dose Route Start Last Admin Trade Name Freq PRN Reason Stop Dose Admin Sodium Chloride 1,000 mls @ 999 mls/hr 02/19/23 16:30 02/19/23 16:37 Ns IV 02/19/23 17:30 999 mls/hr .Q1H1M MAYRA Administration Iohexol 100 ml 02/19/23 16:46 02/19/23 16:47 Iohexol 350 Mg/Ml 100 Ml Infus..Btl IV 02/19/23 16:47 85 ml ONCE ONE Administration Morphine Sulfate 2 mg 02/19/23 16:21 02/19/23 16:37 Morphine Sulfate 2 Mg/Ml Cartridge IVPUSH 02/19/23 16:22 2 mg ONCE ONE Administration Protocol Ondansetron HCl 4 mg 02/19/23 16:21 02/19/23 16:37 Ondansetron Hcl 4 Mg/2 Ml Vial IVPUSH 02/19/23 16:22 4 mg ONCE ONE Administration Discharge Plan Discharge Clinical Impression: Abdominal pain Patient Disposition: Home, Self-Care Instructions: Abdominal Pain (ED) Additional Instructions: As discussed the CT scan overall normal today. Nothing to suggest a cause for your symptoms. It is possible that the may be in relation to a stomach virus, gastritis, or common side effects from or recently starting Trulicity. Please contact your primary care provider to arrange for a follow-up visit. Please be sure to rest, drink plenty of fluids, and follow a bland diet. Introduce a bland diet including crackers, bananas, rice, soup, toast, and boiled vegetables. This may progress to plain baked or boiled chicken or turkey. Avoid dairy products or foods high in fat or grease. You may return back to emergency department any new or worsening symptoms or concerns. Prescriptions: New ondansetron 4 mg tablet,disintegrating 4 mg PO Q8H PRN (Reason: nausea and vomiting) Qty: 14 0RF No Action triamcinolone acetonide 0.5 % cream 1 appl topical DAILY 30 Days Qty: 15 3RF metformin 500 mg tablet 500 mg PO BID 90 Days Qty: 180 1RF Trulicity 0.75 mg/0.5 mL pen injector 0.75 mg subcut QWEEK 30 Days Qty: 2.5 6RF acetaminophen [Tylenol Extra Strength] 500 mg tablet 500 mg PO Q6H PRN (Reason: fever or pain) Qty: 14 0RF lidocaine [Lidoderm] 5 % adhesive patch,medicated 1 patch topical DAILY MDD remove after 12 hours PRN (Reason: pain) Qty: 30 0RF Rx Instructions: leave on most painful area for up to 12 hrs cyclobenzaprine 10 mg tablet 10 mg PO DAILY azelastine 137 mcg (0.1 %) aerosol,spray 2 spray intranasal BID omeprazole 20 mg capsule,delayed release(DR/EC) 20 mg PO DAILY 90 Days Qty: 90 1RF (DME) blood-glucose meter [FreeStyle Lite Meter] Kit See Rx Instructions .Route Qty: 1 0RF Rx Instructions: As directed (DME) FreeStyle Lite Strips Strip See Rx Instructions .Route Qty: 100 3RF Rx Instructions: Use 1 test strip once a day (DME) lancets [FreeStyle Lancets] 28 gauge misc See Rx Instructions .Route Qty: 100 3RF Rx Instructions: Use 1 lancet once a day atorvastatin 80 mg tablet 80 mg PO BEDTIME 90 Days Qty: 90 0RF cholecalciferol (vitamin D3) 50 mcg (2,000 unit) capsule 50 mcg PO DAILY 90 Days Qty: 90 0RF Referrals: Eva Reid MD [Primary Care Provider] -
[2023-02-19 14:33] LABS: MANUAL DIFF FLAG NO
[2023-02-19 14:34] LABS: Basophils Percent Auto 0.3 % (0-2); Eosinophils Absolute Auto 0.1 X10*3/uL (0.0-0.4); Eosinophils Percent Auto 1.6 % (0-4); Hematocrit 43.1 % (37.0-47.0); Hemoglobin 14.9 g/dl (12.0-16.0); Imm Gran Abs Auto 0.02 X10*3/uL (0.00-0.03); Imm Gran Pct Auto 0.2 % (0.0-0.4); Lymphocytes Absolute Auto 2.7 X10*3/uL (1.2-4.9); Lymphocytes Percent Auto 30.3 % (20-40); Mean Corpuscular HGB Conc 34.6 g/dl (31.0-35.0); Mean Corpuscular Hemoglobin 30.2 pg (27.0-33.0); Mean Corpuscular Volume 87.2 fL (80.0-98.0); Mean Platelet Volume 10.4 fL (9.4-12.3); Monocytes Absolute Auto 0.9 X10*3/uL (0.1-1.2); Monocytes Percent Auto 9.8 % (2-11); Neutrophils Absolute Auto 5.2 x10*3/uL (2.0-8.3); Neutrophils Percent Auto 57.8 % (45-73); Platelet Count 257 X10*3/uL (160-400); Red Blood Count 4.94 X10*6/uL (4.20-5.50)
[2023-02-19 14:36] LABS: Appearance Urine Cloudy; Color Urine Dark Yellow; Glucose Urine UA Negative (Negative); Leukocyte Esterase Urine Negative (Negative); Nitrite Urine Negative (Negative); PH 5.5 (5.0-9.0); Specific Gravity - Urine >= 1.030 (1.005-1.025); UMIC TRIGGER UACC YES; Urine Blood Negative (Negative); Urine Ketones 15 mg/dL (Negative); Urine Protein 30 (1+) mg/dL (Neg-Trace)
[2023-02-19 14:37] LABS: UPreg QC Valid YES; Urine Pregnancy NEGATIVE (NEGATIVE)
[2023-02-19 14:48] LABS: Alanine Aminotransferase 13 U/L (0-31); Albumin Level 4.4 g/dL (3.5-5.0); Alkaline Phosphatase 110 U/L (39-117); Anion Gap 13 (12-20); Aspartate Amino Transferase 16 U/L (5-31); Bilirubin Total 0.6 mg/dL (0.0-1.0); Blood Urea Nitrogen 9 mg/dL (9-16); Calcium 9.7 mg/dL (8.4-10.2); Carbon Dioxide 26 mmol/L (22-29); Chloride 104 mmol/L (96-108); Creatinine Clr Calc Pharmacy 84.9; Estimated Glomerular Filt Rate > 60; Glucose Random 112 mg/dL (60-115); Lipase 53 U/L (8-78); Magnesium 2.1 mg/dL (1.6-2.6); Potassium 3.8 mmol/L (3.3-5.1); Sodium 139 mmol/L (135-145); Total Protein 7.9 g/dL (6.5-8.0)
[2023-02-19 15:13] LABS: Bacteria Urine Trace (None Seen); RBC Urine 0-2 /HPF (0-2); WBC Urine 0-5 /HPF (0-5)
[2023-02-19 16:03] VITALS: BP 147/94; PULSE 59; RESP 18; O2SAT 99
--- NOTE | 2023-02-19 16:16 | PC.NURSE ---
pt a&ox3. respirations even and unlabored. pt reports left and right upper abdominal pain for one week. pt reports nausea with one episode of vomiting. pt denies blood in vomit. pt reports being constipated and reports moving bowels this morning a very small hard amount. pt abdomen soft but tender tot ouch in the upper right, left and epigastric quadrants. 20 placed in pt right AC at this time.
[2023-02-19] MEDS: 0.9 % Sodium Chloride 1,000 ML 999 ML IV (16:37)
[2023-02-19] MEDS: Morphine Sulfate 2 MG/ML CARTRIDGE IVPUSH (16:37)
[2023-02-19] MEDS: ondansetron HCL 4 MG/2 ML VIAL IVPUSH (16:37)
[2023-02-19] MEDS: iohexoL 350 MG/ML 100 ML INFUS..BTL IV (16:47)
[2023-02-19 18:52] VITALS: BP 129/77; PULSE 66; RESP 18; O2SAT 99
== END 2023-02-19 18:53 | disposition home or self-care (01) ==
PROVIDERS: Physician Assistant Medical; Emergency Provider Emergency Medicine; PCP Internal Medicine
DX: R10.9 Unspecified abdominal pain (principal); R11.2 Nausea with vomiting, unspecified; M79.7 Fibromyalgia; Z79.899 Other long term (current) drug therapy; Z87.891 Personal history of nicotine dependence; Z79.4 Long term (current) use of insulin
CPT/HCPCS: 36415; 74177; 80053; 81001; 81025; 83690; 83735; 85025; 96361; 96374; 96375; 99284; J2270; J2405; Q9967

== ENCOUNTER 2023-02-20 12:58 | Outpatient (AMB) | payer OTHER, SELFPAY ==
--- NOTE | 2023-02-20 13:13 | MHC.OFFVIS ---
Intake Vital Signs 02/20/23 13:18 Height 5 ft 2 in Weight 188 lb BMI 34.4 BP 117/60 Blood Pressure Location Rt brachial Position Sitting Pulse 77 Intake Visit Reasons: re-discuss exc. lipoma of thigh Intake Note: This patient presents for an assessment to re-discuss excision lipoma of thigh. Patient c/o; denies new complaints at this time. Folder Taper Operator Required: Yes Folder Taper Operator Language: Patent Law Specialist Name: Nikita Information Interpreted: non-clinical & clinical Accompanied by: Self / Same As Patient Allergies aspirin [ASPIRIN] Allergy (Intermediate, Verified 02/20/23 13:19) SWELLING, anaphylaxis/swelling naproxen [NAPROXEN] Allergy (Intermediate, Verified 02/20/23 13:19) LIP SWELLING, swelling Medication List - Last Reconciled 02/20/23 by Anderosn Knott MD acetaminophen (Tylenol Extra Strength) 500 mg PO Q6H PRN atorvastatin 80 mg PO BEDTIME 90 days azelastine 2 sprays intranasal BID blood sugar diagnostic (FreeStyle Lite Strips) Use 1 test strip once a day blood-glucose meter (FreeStyle Lite Meter kit) As directed cholecalciferol (vitamin D3) 50 mcg PO DAILY 90 days cyclobenzaprine 10 mg PO DAILY dulaglutide (Trulicity) 0.75 mg (0.5 mL) subcut QWEEK 30 days lancets (FreeStyle Lancets) Use 1 lancet once a day lidocaine 5% (Lidoderm) 1 patch topical DAILY PRN MDD remove after 12 hours metformin 500 mg PO BID 90 days omeprazole 20 mg PO DAILY 90 days ondansetron 4 mg PO Q8H PRN triamcinolone acetonide 0.5% 1 appl topical DAILY 30 days HPI re-discuss exc. lipoma of thigh HPI Details She has this lipoma on the thigh that she I had seen in her for in the past. She now wants to proceed with excision. She describes pain on this area. She also says that she has a similar lump on the left buttock which she wants removed as well. She otherwise denies any other significant complaints. [facility] Medical History (Updated 02/20/23 @ 13:44 by Anderson Knott MD) Multiple lipomas Lipoma of thigh Mild recurrent major depression Severe obesity with body mass index (BMI) of 35.0 to 39.9 with comorbidity Diabetes mellitus type 2 in obese Chest pain Lipoma of arm History of abnormal cervical Pap smear Morbid obesity with BMI of 40.0-44.9, adult Impaired glucose tolerance Dyslipidemia Surgical History S/P tubal ligation History of esophagogastroduodenoscopy (EGD) (~2019) Family History Father HTN (hypertension) Mother Diabetes Arthritis of knee Cancer Paternal Grandfather Heart attack Paternal Aunt Cancer Maternal Uncle Cancer Social History Household Members: Children Household Members Other:: daughter and son Housing: Apartment Alcohol intake: current Alcohol intake frequency: holidays/special occasions only Patient Tobacco Use Status: Former Tobacco user Tobacco use type: Cigarette Years Smoked: 25 years e-Cigarette/Vaping Use: Never Used Second Hand Smoke Exposure: Yes Substance Use Type: Marijuana service: No Current occupational status: employed Current occupational exposures/hazards: No Cognitive needs: No Hearing needs: No Vision needs: No Female Reproductive History Menstrual Age of Menarche: 12 Review of Systems Const Denies chills and Denies fever(s) Card Denies chest pain, Denies dyspnea and Denies dyspnea on exertion Resp Denies cough, Denies dyspnea and Denies dyspnea on exertion GI Denies hematochezia and Denies change in bowel habits Details: Vaginal bleeding Denies hematuria Musc Denies back pain and Denies limited range of motion Neuro Denies focal weakness and Denies convulsions Psych Denies depression and Denies mood swings Physical Exam Vital Signs: Last Vital Signs Pulse 77 02/20/23 13:18 BP 117/60 02/20/23 13:18 BMI result Body Mass Index 34.4 Const General: comfortable and no acute distress Orientation/consciousness: patient oriented x3 Neck Neck: Yes no lymphadenopathy Resp Auscultation: clear to auscultation bilaterally Cardio Rhythm: regular rhythm GI Palpation (GI): Soft to palpation, nontender and no guarding Neuro General: patient oriented x3 Extrem Other: Left anterior thigh with a lipomatous mass, about 1.5 cm in size; similar size mass on the lateral aspect of the left buttock as well Assessment & Plan Assessment & Plan (1) Multiple lipomas: Code(s): D17.9 - Benign lipomatous neoplasm, unspecified Plan: She wants these 2 lipomas removed. I explained to her the technique of excision under local anesthesia. I discussed the risks including but not limited to bleeding, infections poor healing. She wants to proceed This will be scheduled on her next visit here in the office. Coding Level of Care Code Est Pt Level 3 (63020) Diagnoses Multiple lipomas D17.9
[2023-02-20 13:18] VITALS: BP 117/60; PULSE 77; BMI 34.4
== END 2023-02-20 13:44 | disposition home or self-care (01) ==
PROVIDERS: PCP Internal Medicine; Visit Provider Surgery
DX: D17.9 Benign lipomatous neoplasm, unspecified (principal)
CPT/HCPCS: 99213

== ENCOUNTER → 2023-02-20 12:58 | Outpatient (BNVA) | payer OTHER, SELFPAY | PROVIDERS: PCP Internal Medicine; Visit Provider Surgery | DX: D17.24 Benign lipomatous neoplasm of skin and subcutaneous tissue of left leg (principal); D17.1 Benign lipomatous neoplasm of skin and subcutaneous tissue of trunk | CPT/HCPCS: 99212 ==

== ENCOUNTER 2023-02-24 11:30 | Outpatient (REF) | payer OTHER, SELFPAY ==
--- NOTE | ~2023-02-24 | US_ITS ---
EXAMINATION: US ABDOMEN COMPLETE CLINICAL INFORMATION: Unspecified abdominal pain. COMPARISON: CT abdomen and pelvis with contrast 02/19/2023. TECHNIQUE: Real-time imaging of the abdominal viscera. FINDINGS: PANCREAS: Normal. ABDOMINAL AORTA: The proximal, mid, and distal segments are normal in caliber. INFERIOR VENA CAVA: Visualized portions are normal. LIVER: The liver is normal in size. The liver contour is normal. There is diffuse increased liver parenchymal echogenicity, consistent with hepatic steatosis. No focal hepatic lesion. There is no intrahepatic biliary duct dilatation seen. GALLBLADDER: Surgically absent. COMMON BILE DUCT: Normal in caliber measuring 0.3 cm in diameter. RIGHT KIDNEY: Normal. No hydronephrosis. No renal calculi or focal parenchymal lesions. The kidney measures 9.7 cm in maximum dimension. LEFT KIDNEY: Normal. No hydronephrosis. No renal calculi or focal parenchymal lesions. The kidney measures 9.5 cm in maximum dimension. SPLEEN: Normal. The spleen measures 9.5 cm in maximum dimension. FREE FLUID: None. US/US abdomen complete IMPRESSION: Hepatic steatosis. No explanation for abdominal pain.
== END 2023-02-24 11:31 | disposition home or self-care (01) ==
LOC: HO.HMGCX 11:30
PROVIDERS: PCP Internal Medicine; Visit Provider Internal Medicine
DX: R10.9 Unspecified abdominal pain (principal)
CPT/HCPCS: 76700

== ENCOUNTER 2023-03-24 12:36 | Outpatient (REF) | payer OTHER, SELFPAY | END 2023-03-24 12:37 | disposition home or self-care (01) | LOC: HO.LNP 12:36 | PROVIDERS: PCP Internal Medicine; Visit Provider Surgery | DX: D17.24 Benign lipomatous neoplasm of skin and subcutaneous tissue of left leg (principal); D17.39 Benign lipomatous neoplasm of skin and subcutaneous tissue of other sites | CPT/HCPCS: 11403; 11404; 88304 ==

== ENCOUNTER 2023-03-24 12:36 | Outpatient (AMB) | payer OTHER, SELFPAY ==
--- NOTE | 2023-03-24 12:52 | MHC.OFFVIS ---
Intake Intake Visit Reasons: excision of lipoma thigh and buttock, LOC Intake Note: This patient presents for in-office procedure for excision of lipoma thigh and buttock. Patient c/o; reports no changes. Vehicle Service Agent Required: Yes Vehicle Service Agent Language: Dialysis Social Worker Name: Nikita Information Interpreted: non-clinical & clinical Accompanied by: Daughter Allergies aspirin [ASPIRIN] Allergy (Intermediate, Verified 03/24/23 12:58) SWELLING, anaphylaxis/swelling naproxen [NAPROXEN] Allergy (Intermediate, Verified 03/24/23 12:58) LIP SWELLING, swelling HPI excision of lipoma thigh and buttock, LOC HPI Details He is here for excision of a lipoma on the left thigh and left buttock [facility] Medical History (Updated 02/20/23 @ 13:44 by Anderson Knott MD) Multiple lipomas Lipoma of thigh Mild recurrent major depression Severe obesity with body mass index (BMI) of 35.0 to 39.9 with comorbidity Diabetes mellitus type 2 in obese Chest pain Lipoma of arm History of abnormal cervical Pap smear Morbid obesity with BMI of 40.0-44.9, adult Impaired glucose tolerance Dyslipidemia Surgical History S/P tubal ligation History of esophagogastroduodenoscopy (EGD) (~2019) Family History Father HTN (hypertension) Mother Diabetes Arthritis of knee Cancer Paternal Grandfather Heart attack Paternal Aunt Cancer Maternal Uncle Cancer Social History Household Members: Children Household Members Other:: daughter and son Housing: Apartment Alcohol intake: current Alcohol intake frequency: holidays/special occasions only Patient Tobacco Use Status: Former Tobacco user Tobacco use type: Cigarette Years Smoked: 25 years e-Cigarette/Vaping Use: Never Used Second Hand Smoke Exposure: Yes Substance Use Type: Marijuana service: No Current occupational status: employed Current occupational exposures/hazards: No Cognitive needs: No Hearing needs: No Vision needs: No Female Reproductive History Menstrual Age of Menarche: 12 Office Procedures Excision Details: The patient had 2 lipomas, 1 on the left anterior thigh and 1 on the left buttock. She was initially placed supine. The area of the lipoma on the anterior thigh on the left was prepped and draped lidocaine 1% was used for local anesthesia. I made an incision on the skin overlying this lipoma using blade 15. This was carried down sharply through the full-thickness of the skin and subcutaneous fat until the lipomas visualized. I sharply dissected the lipoma off the rest of the subcutaneous layer with Metzenbaum scissors until this was delivered and sent as a specimen. This lipoma was about 3.1 cm in diameter. The incision was closed with full-thickness nylon 3-0 simple interrupted sutures The patient was then placed in prone position. The area of the lipoma on the left buttock was prepped and draped. Lidocaine 1% was used for local anesthesia. I made an incision on the skin overlying the lipoma using blade 15. This was carried down sharply through the full-thickness of the skin subcutaneous fat. I dissected the lipoma sharply off the rest of the subcutaneous layer using Metzenbaum scissors. This lipoma was about 2.2 cm in diameter. I closed the incision with full-thickness nylon 3-0 interrupted sutures. Dressings were applied. The procedure was completed. He tolerated procedure well. There were no immediate complications. He was given wound care instructions. 18300-gleob/arms/legs 2.1-3cm 07377-khcna/arms/legs 3.1-4cm Procedure code (CPT) selection complete Assessment & Plan Assessment & Plan (1) Multiple lipomas: Code(s): D17.9 - Benign lipomatous neoplasm, unspecified Plan: Excision of 2 lipomas was done. One was on the left anterior thigh and was 1 on the left buttock. She was given wound care instructions. Will be seen in the office for a postop visit. Coding Level of Care Code New Pt Level 3 (78733) Global (84966) Diagnoses Multiple lipomas D17.9 CPT Codes Trunk/Arms/Legs - CPT: 53496-xownq/arms/legs 2.1-3cm ([id number]) Trunk/Arms/Legs - CPT: 99692-cqzbm/arms/legs 3.1-4cm ([id number])
== END 2023-03-24 13:26 | disposition home or self-care (01) ==
PROVIDERS: PCP Internal Medicine; Visit Provider Surgery
DX: D17.24 Benign lipomatous neoplasm of skin and subcutaneous tissue of left leg (principal); D17.1 Benign lipomatous neoplasm of skin and subcutaneous tissue of trunk
CPT/HCPCS: 11403

== ENCOUNTER 2023-04-07 08:56 | Outpatient (AMB) | payer OTHER, SELFPAY ==
--- NOTE | 2023-04-07 09:13 | A.OFFVIS_ITS ---
Intake Vital Signs 04/07/23 09:18 Height 5 ft 2 in Weight 187 lb 6.287 oz BMI 34.3 BP 120/82 Blood Pressure Location Lt brachial Position Sitting Pulse 72 Intake Visit Reasons: excision of lipoma thigh and buttock, LOC Intake Note: Patient is seen in office for post op assessment post excision of lipoma of the left thigh and buttock. Patient c/o: denies any concerns sutures removed at visit Quarter Inspector Required: No Accompanied by: Self / Same As Patient Allergies aspirin [ASPIRIN] Allergy (Intermediate, Verified 04/07/23 09:18) SWELLING, anaphylaxis/swelling naproxen [NAPROXEN] Allergy (Intermediate, Verified 04/07/23 09:18) LIP SWELLING, swelling HPI excision of lipoma thigh and buttock, LOC HPI Details She had undergone excision of a lipoma from the left thigh and the left buttock area under local anesthesia last 03/24/2023. She is here for a postop visit. She says she is doing well and denies any significant complaints. [facility] Medical History Multiple lipomas Lipoma of thigh Mild recurrent major depression Severe obesity with body mass index (BMI) of 35.0 to 39.9 with comorbidity Diabetes mellitus type 2 in obese Chest pain Lipoma of arm History of abnormal cervical Pap smear Morbid obesity with BMI of 40.0-44.9, adult Impaired glucose tolerance Dyslipidemia Surgical History S/P tubal ligation History of esophagogastroduodenoscopy (EGD) (~2019) Family History Father HTN (hypertension) Mother Diabetes Arthritis of knee Cancer Paternal Grandfather Heart attack Paternal Aunt Cancer Maternal Uncle Cancer Social History Household Members: Children Household Members Other:: daughter and son Housing: Apartment Alcohol intake: current Alcohol intake frequency: holidays/special occasions only Patient Tobacco Use Status: Former Tobacco user Tobacco use type: Cigarette Years Smoked: 25 years e-Cigarette/Vaping Use: Never Used Second Hand Smoke Exposure: Yes Substance Use Type: Marijuana service: No Current occupational status: employed Current occupational exposures/hazards: No Cognitive needs: No Hearing needs: No Vision needs: No Female Reproductive History Menstrual Age of Menarche: 12 Review of Systems Const Denies chills and Denies fever(s) Card Denies chest pain, Denies dyspnea and Denies dyspnea on exertion Resp Denies cough, Denies dyspnea and Denies dyspnea on exertion GI Denies hematochezia and Denies change in bowel habits Denies hematuria Musc Denies back pain and Denies limited range of motion Neuro Denies focal weakness and Denies convulsions Psych Denies depression and Denies mood swings Physical Exam Vital Signs: Last Vital Signs Pulse 72 04/07/23 09:18 BP 120/82 04/07/23 09:18 BMI result Body Mass Index 34.3 Const General: comfortable and no acute distress Extrem Other: excision sites on the left thigh and left buttock areas are both well healed, not infected, sutures intact Assessment & Plan Assessment & Plan (1) Multiple lipomas: Code(s): D17.9 - Benign lipomatous neoplasm, unspecified Plan: status post excision of lipomas from the left thigh and the left buttock. Incisions are well healed. Her path report shows angiolipomas. Her sutures were removed. She can follow up on a p.r.n. basis. Coding Level of Care Code Global (57881) Diagnoses Multiple lipomas D17.9
[2023-04-07 09:18] VITALS: BP 120/82; PULSE 72; BMI 34.3
== END 2023-04-07 09:23 | disposition home or self-care (01) ==
PROVIDERS: PCP Internal Medicine; Visit Provider Surgery
DX: D17.9 Benign lipomatous neoplasm, unspecified (principal)
CPT/HCPCS: 99024

== ENCOUNTER → 2023-04-07 08:56 | Outpatient (BNVA) | payer OTHER, SELFPAY | PROVIDERS: PCP Internal Medicine; Visit Provider Surgery ==

== ENCOUNTER 2025-01-18 18:56 | Emergency (ER) | payer SELFPAY ==
[2025-01-18 19:06] VITALS: BP 132/74; PULSE 81; RESP 16; TEMP 36.8; O2SAT 97; BMI 34.6
--- NOTE | 2025-01-18 19:11 | ED_ITS ---
HPI - General Adult General Chief complaint: Wound/Laceration Stated complaint: cut open pinky Time Seen by Provider: 01/19/25 00:06 Source: patient Mode of arrival: ambulatory Limitations: language barrier ([employer]porate [employer] Manager services utilized) History of Present Illness ED Provider: Abhinav VASQUEZ HPI narrative: The patient is a 49-year-old female presenting to the ED reporting while washing dishes this evening she accidentally broke a glass cup and suffered a laceration to her right pinky finger advancing into the 4th intertriginous space. The patient received Tdap upon arrival to the ED. The patient denies foreign body sensation, denies distal paresthesias or impaired range of motion. Patient denies other acute somatic complaint. Related Data Home Medications ?Medication ?Instructions ?Recorded ?Confirmed azelastine 137 mcg (0.1 %) nasal 2 spray intranasal BI D 06/12/20 02/20/23 spray cyclobenzaprine 10 mg tablet 10 mg PO DAILY 06/12/20 0 02/20/23 Previous Rx's ?Medication ?Instructions ?Recorded blood sugar diagnostic (FreeStyle #100 ea 06/26/21 Lite Strips) blood-glucose meter (FreeStyle #1 ea 06/26/21 Lite Meter kit) lancets 28 gauge (FreeStyle #100 ea 06/26/21 Lancets) omeprazole 20 mg capsule,delayed 20 mg PO DAILY 90 day s #90 caps 06/26/21 release acetaminophen 500 mg tablet 500 mg PO Q6H PRN fever or pain 05/20/22 (Tylenol Extra Strength) #14 tabs cholecalciferol (vitamin D3) 50 50 mcg PO DAILY 90 day s #90 caps 07/19/23 mcg (2,000 unit) capsule atorvastatin 80 mg tablet 80 mg PO BEDTIME 90 days #90 tabs 04/12/24 dulaglutide 0.75 mg/0.5 mL 0.75 mg (0.5 mL) subcut QWE EK 30 04/12/24 subcutaneous pen injector days #2.5 mL (Trulicity) lidocaine 5 % topical patch 1 patch topical DAILY PRN pain #30 04/12/24 (Lidoderm) ea metformin 500 mg tablet 500 mg PO BID 90 days #180 t abs 04/12/24 ondansetron 4 mg disintegrating 4 mg PO Q8H PRN nausea and 11/18/24 tablet vomiting #14 tabs triamcinolone acetonide 0.5 % 1 appl topical DAILY 30 days #15 04/12/24 topical cream grams Allergies Allergy/AdvReac Type Severity Reaction Status Date / Time aspirin (ASPIRIN) Allergy Intermediate SWELLING, Verified 01/18/25 19:07 anaphylaxis/swelling naproxen (NAPROXEN) Allergy Intermediate LIP Verified 01/18/25 19:07 SWELLING, swelling Review of Systems Review of Systems: Yes all other systems are reviewed and are negative [facility] Past Medical History Medical History Multiple lipomas Lipoma of thigh Mild recurrent major depression Severe obesity with body mass index (BMI) of 35.0 to 39.9 with comorbidity Diabetes mellitus type 2 in obese Chest pain Lipoma of arm History of abnormal cervical Pap smear Morbid obesity with BMI of 40.0-44.9, adult Impaired glucose tolerance Dyslipidemia Surgical History S/P tubal ligation History of esophagogastroduodenoscopy (EGD) (~2019) Family History Family History Father HTN (hypertension) Mother Diabetes Arthritis of knee Cancer Paternal Grandfather Heart attack Paternal Aunt Cancer Maternal Uncle Cancer Social History Social History Household Members: Children Household Members Other:: daughter and son Housing: Apartment Alcohol intake: current Alcohol intake frequency: holidays/special occasions only Patient Tobacco Use Status: Former Tobacco user Tobacco use type: Cigarette Years Smoked: 25 years e-Cigarette/Vaping Use: Never Used Second Hand Smoke Exposure: Yes Substance Use Type: Marijuana Advance Directives: No Advance Directives Information Provided: No service: No Current occupational status: employed Current occupational exposures/hazards: No Cognitive needs: No Hearing needs: No Vision needs: No Physical Exam ED Vital Signs: Vital Signs - 24 hr 01/18/25 21:54 01/19/25 01:44 01/19/25 01:44 Temperature 97.8 F 97.8 F Pulse Rate 64 65 65 Respiratory Rate 18 15 15 Blood Pressure 133/86 129/88 129/88 Pulse Oximetry 98 98 98 Oxygen Delivery Method Room Air Room Air Room Air BMI result Body Mass Index 34.6 CONSTITUTIONAL: The patient appears non-toxic, well nourished and in no acute distress. Vital signs as documented. HEAD: Atraumatic, normocephalic. EYES: EOMs grossly intact, pupils equal, conjunctiva clear, no exudate. ENT: Nares patent, no discharge. Airway patent, no audible stridor, visible mucosa is pink and moist without noted lesions. NECK: trachea is midline, no obvious masses or gross abnormalities. CHEST: Symmetric movement, normal appearance. LUNGS: Non-labored work of breathing. CARDIAC: No evidence of hypoperfusion. ABDOMEN: Nondistended, no obvious injury. : Deferred. EXTREMITIES: There is an approximate 2 cm laceration noted to the radial aspect of the right 5th digit advancing towards the palmar surface into the 4th intertriginous space, hemostasis noted, wound is easily retractable with excellent visualization, no obvious visible or palpable foreign bodies. Distal CSM is intact, cap refill less than 2 sec, hemostasis achieved prior to arrival in the ED. Patient moves all other extremities spontaneously without reported pain. No other obvious injury or deformity noted. NEURO: Alert and oriented x3, CN II-XII appear grossly intact. Cerebellar Functioning grossly intact. Speech clear and appropriate. SKIN: Warm, dry, color appropriate. No rashes or lesions noted. Course Course Course Narrative: RME: 49 yold female presents to the ED for lacaeration bethween ring and pinky finger of right hand after cutting finger on glass cup. Will need sutures. Tdap ordered Medications Administered Discontinued Medications Generic Name Dose Route Start Last Admin Trade Name Freq PRN Reason Stop Dose Admin Bacitracin 1 appl 01/19/25 01:32 01/19/25 01:41 Bacitracin Oint 0.9 Gm Packet TOPICAL 01/19/25 01:33 1 appl ONCE ONE Administration Protocol Diphtheria/Tetanus/Acell Pertussis 0.5 ml 01/18/25 19:11 01/18/25 21:57 Diphth,Pertus(Acell),Tet Adult 0.5 Ml Syringe IM 01/18/25 19:12 0.5 ml .ONCE ONE Administration Lidocaine HCl 5 ml 01/19/25 01:36 01/19/25 01:41 Lidocaine Hcl 1 % Mpf 5 Ml Vial INFILTRATI 01/19/25 01:37 5 ml ONCE ONE Administration Procedures Laceration Laceration 1: Site: hand Side (If applicable): right Size (cm): 2 Description: linear and clean Depth: simple, single layer Local Anesthetic: lidocaine 1% Amount of anesthesia used (mL): 4 Pre-repair: wound explored (No visible or palpable FB) and irrigated extensively Skin layer closed with: nylon Size (cm): 4-0 Number of sutures: 4 Technique: simple, interrupted Medical Decision Making Medical Decision Making MDM Narrative: 1:11 AM 01/19/2025 (Glenda VASQUEZ): Patient is a 49-year-old female presenting to the ED for evaluation of a laceration to the right 5th digit advancing into the 4th intertriginous space, no palpable or visible foreign body, no sensation of foreign body. The patient's wound will be repaired, Tdap has been updated. Admission/Observation Consideration of admission/observation: Escalation of care including admission/observation considered Tests considered The following testing was considered but not selected: Hand x-ray Discharge Plan Discharge Clinical Impression: Laceration Patient Disposition: Home, Self-Care Instructions: Laceration (ED) Additional Instructions: Jing por elegir el Departamento de Urgencias del [facility] M?dico [place] para burks atenci?n m?dica hoy. Burks laceraci?n de hoy parece no presentar complicaciones. Se repar? con suturas no absorbibles que deber?n retirarse en 5 a 7 d?as. Por favor, regrese al departamento de urgencias o acuda a burks m?dico de cabecera para que le retiren las suturas. Aplique bacitracina y un ap?sito limpio y seco sobre la laceraci?n dos veces al d?a aimee los primeros 2 a 3 d?as. Despu?s, mantenga la angelo limpia y seca, magaly descubierta y expuesta al aire para que la laceraci?n cicatrice. Si julián es perfectamente aceptable dejar correr agua sobre las suturas mientras se ducha, no nade ni sumerja la laceraci?n en agua estancada hasta que le retiren las suturas. Puede mayra dosis alternas (escalonadas) de ibuprofeno 600 mg y Tylenol 1000 mg cada 4 horas seg?n sea necesario para aliviar el dolor. Por favor, descanse la angelo lesionada y aplique hielo aimee 20 minutos cada hora. Si no tiene un m?dico de cabecera, llame a [facility] [place] al [phone] para asignarle candie nuevo. Mientras espera a que le asignen un nuevo m?dico de cabecera, puede llamar a nuestra Cl?enedina de Atenci?n Sin Amanda Previa al [phone] para necesidades que no daniel de emergencia. Por favor, regrese a urgencias si presenta sangrado incontrolable, reapertura de la herida, enrojecimiento que se extiende m?s de 1 a 2 cm de la herida o secreci?n blanquecina y lechosa. Tambi?n regrese si experimenta cualquier otro s?ntoma o inquietud, ya sea nuevo o que empeore. Thank you for choosing [facility] Emergency Department for your care today. Your laceration today appears uncomplicated. The laceration was repaired with nonabsorbable sutures which will need to be removed in 5-7 days. Please return to the emergency department or follow-up with your primary care provider for removal of sutures. Please apply bacitracin and a clean dry dressing to the laceration twice daily for the first 2-3 days. Then please keep the area clean and dry, but uncovered and exposed to the air to allow the laceration to heal. While it is perfectly acceptable to allow water to run over the sutures while showering, please do not swim, or submerge the laceration in standing water until the sutures are removed. You may take alternating (staggered) doses of ibuprofen 600mg and Tylenol 1000mg every 4 hours as needed for any additional pain. Please rest the injured area, and apply ice for 20 minutes every hour. If you do not have a primary care physician, please call the [facility] [place] at [phone] to establish a new primary care physician. While waiting to establish your new primary care physician, you can call our [facility] at [phone] for non-emergency needs. Please return to the emergency department if you develop any uncontrollable bleeding, re-opening of your wound, redness advancing >1-2 cm away from your wound, or white milky discharge from your wound. Please also return if you experience any other new or worsening symptoms or concerns. Prescriptions: No Action cholecalciferol (vitamin D3) 50 mcg (2,000 unit) capsule 50 mcg PO DAILY 90 Days Qty: 90 0RF atorvastatin 80 mg tablet 80 mg PO BEDTIME 90 Days Qty: 90 0RF Trulicity 0.75 mg/0.5 mL pen injector 0.75 mg subcut QWEEK 30 Days Qty: 2.5 6RF lidocaine [Lidoderm] 5 % adhesive patch,medicated 1 patch topical DAILY MDD remove after 12 hours PRN (Reason: pain) Qty: 30 0RF Rx Instructions: leave on most painful area for up to 12 hrs metformin 500 mg tablet 500 mg PO BID 90 Days Qty: 180 1RF ondansetron 4 mg tablet,disintegrating 4 mg PO Q8H PRN (Reason: nausea and vomiting) Qty: 14 0RF triamcinolone acetonide 0.5 % cream 1 appl topical DAILY 30 Days Qty: 15 3RF acetaminophen [Tylenol Extra Strength] 500 mg tablet 500 mg PO Q6H PRN (Reason: fever or pain) Qty: 14 0RF cyclobenzaprine 10 mg tablet 10 mg PO DAILY azelastine 137 mcg (0.1 %) aerosol,spray 2 spray intranasal BID omeprazole 20 mg capsule,delayed release(DR/EC) 20 mg PO DAILY 90 Days Qty: 90 1RF (DME) blood-glucose meter [FreeStyle Lite Meter] Kit See Rx Instructions .Route Qty: 1 0RF Rx Instructions: As directed (DME) FreeStyle Lite Strips Strip See Rx Instructions .Route Qty: 100 3RF Rx Instructions: Use 1 test strip once a day (DME) lancets [FreeStyle Lancets] 28 gauge misc See Rx Instructions .Route Qty: 100 3RF Rx Instructions: Use 1 lancet once a day Referrals: Physician,Unknown J [Primary Care Provider, Medical] Clinical Impression: Laceration Interventions: ED Discharge Assessment Last Done: 01/19/25 01:44 Discharge Date/Time: 01/19/25 01:45 Print Language: French
[2025-01-18 21:54] VITALS: BP 133/86; PULSE 64; RESP 18; O2SAT 98
[2025-01-18] MEDS: Diphth,Pertus(ACell),Tet Adult 0.5 ML SYRINGE IM (21:57)
[2025-01-19] MEDS: Lidocaine HCl 1 % MPF 5 ML VIAL INFILTRATI (01:41)
[2025-01-19 01:44] VITALS: BP 129/88; PULSE 65; RESP 15; TEMP 36.6; O2SAT 98
== END 2025-01-19 01:45 | disposition home or self-care (01) ==
PROVIDERS: Emergency Provider Emergency Medicine
DX: S61.216A Laceration without foreign body of right little finger without damage to nail, initial encounter (principal); W25.XXXA Contact with sharp glass, initial encounter; Y93.G1 Activity, food preparation and clean up; Y92.9 Unspecified place or not applicable; Y99.9 Unspecified external cause status; E66.01 Morbid (severe) obesity due to excess calories; Z68.39 Body mass index [BMI] 39.0-39.9, adult; R07.9 Chest pain, unspecified; E78.5 Hyperlipidemia, unspecified; Z87.891 Personal history of nicotine dependence
CPT/HCPCS: 12001; 90471; 90715; 99282; 99284; J2003

== ENCOUNTER 2025-03-03 08:04 | Emergency (ER) | payer OTHER, SELFPAY ==
--- NOTE | ~2025-03-03 | CT_ITS ---
EXAMINATION: CT ABDOMEN PELVIS WITH IV CONTRAST HISTORY: LLQ pain, back pain COMPARISON: Comparison is made with the prior examination dated 02/19/2023. TECHNIQUE: CT scan of the abdomen and pelvis was performed following administration of 85 mL Omnipaque 350 using standard departmental protocol. Coronal and sagittal reformatted images were generated and reviewed. Oral contrast material was not administered at the request of the referring physician. This CT exam was performed with one or more of the following dose reduction techniques: automated exposure control, adjustment of the mA and/or kV according to patient size, use of iterative reconstruction technique. DLP: 752 mGy-cm FINDINGS: LOWER CHEST: The visualized lung bases are clear. There is no pleural effusion. CARDIOVASCULATURE: The heart is normal in size. There is no pericardial effusion. LIVER: The liver is normal in size and contour. No liver mass is identified. The hepatic and portal veins are patent. GALLBLADDER / BILE DUCTS: The gallbladder is surgically absent. There is no intra or extrahepatic biliary ductal dilatation. SPLEEN: The spleen is normal in size. No focal splenic lesion is identified. PANCREAS: The pancreas is unremarkable in appearance. ADRENAL GLANDS: Within normal limits. KIDNEYS/RETROPERITONEUM: No renal calculi are identified. There is no hydronephrosis. No renal masses are identified. LYMPH NODES: No abdominal or pelvic lymphadenopathy. VASCULATURE: The abdominal aorta is normal in caliber. MESENTERY/PERITONEUM: No free fluid. No masses. There is no free intraperitoneal gas. STOMACH: The stomach is collapsed, limiting evaluation. SMALL BOWEL: The small bowel is normal in caliber. COLON: There is diverticulosis of the descending and sigmoid colon, without evidence of diverticulitis. APPENDIX: Normal. URINARY BLADDER/PELVIC ORGANS: The urinary bladder is collapsed, limiting evaluation. There is a probable 1.9 cm anterior uterine fibroid. BONES / SOFT TISSUES: No suspicious bony or soft tissue abnormalities. CT/CT abdomen pelvis w IV con IMPRESSION: 1. Diverticulosis of the descending and sigmoid colon, without evidence of diverticulitis. 2. Probable 1.9 cm anterior uterine fibroid. Electronically signed by: Gaurav Murphy MD 03/03/2025 10:36 AM EDT
--- NOTE | ~2025-03-03 | XR_ITS ---
EXAMINATION: XR LUMBOSACRAL SPINE CLINICAL INFORMATION: back pain COMPARISON: X-ray 12/30/2013 TECHNIQUE: Three views of the lumbosacral spine. FINDINGS: Vertebral body heights and alignment is maintained. No evidence of acute fracture. The disc spaces are maintained. The paraspinal soft tissues is within normal limits. Cholecystectomy clips. Nonobstructive bowel gas pattern. Bilateral SI joints are symmetric.. XR/XR lumbar spine 2-3V IMPRESSION: No radiographic evidence of acute osseous findings. Electronically signed by: Hong Quick MD 03/03/2025 08:36 AM EDT
[2025-03-03 08:06] VITALS: BP 135/85; PULSE 67; RESP 20; TEMP 35.6; O2SAT 99; BMI 33.3
[2025-03-03 09:50] LABS: MANUAL DIFF FLAG NO
[2025-03-03 09:52] LABS: Hematocrit 38.5 % (37.0-47.0); Hemoglobin 13.8 g/dl (12.0-16.0); Imm Gran Abs Auto 0.01 X10*3/uL (0.00-0.03); Imm Gran Pct Auto 0.2 % (0.0-0.4); Lymphocytes Absolute Auto 1.9 X10*3/uL (1.2-4.9); Mean Corpuscular HGB Conc 35.8 g/dl (31.0-35.0); Mean Corpuscular Hemoglobin 30.9 pg (27.0-33.0); Mean Corpuscular Volume 86.1 fL (80.0-98.0); NRBC Abs Auto 0.000 X10*3/uL (0.0-0.012); NRBC Pct Auto 0.0 /100WBC (0.0-0.2); Platelet Count 220 X10*3/uL (160-400); Red Blood Count 4.47 X10*6/uL (4.20-5.50); White Blood Count 5.5 X10*3/uL (4.8-10.8)
[2025-03-03 10:08] LABS: Alanine Aminotransferase 13 U/L (0-31); Albumin Level 4.4 g/dL (3.5-5.0); Alkaline Phosphatase 77 U/L (39-117); Anion Gap 8 (12-20); Aspartate Amino Transferase 19 U/L (5-31); Blood Urea Nitrogen 12 mg/dL (9-16); Calcium 9.2 mg/dL (8.4-10.2); Carbon Dioxide 26 mmol/L (22-29); Chloride 110 mmol/L (96-108); Creatinine Clr Calc Pharmacy 105.9; Estimated Glomerular Filt Rate > 60; Lipase 23 U/L (8-78); Magnesium 1.9 mg/dL (1.6-2.6); Potassium 4.1 mmol/L (3.3-5.1); Sodium 140 mmol/L (135-145); Total Protein 7.3 g/dL (6.5-8.0)
--- NOTE | 2025-03-03 10:22 | PC.NURSE ---
Pt at CT can at this time. States low back pain improved to 6/10 s/p IV Tylenol. Appears more comfortable
[2025-03-03] MEDS: iohexoL 350 MG/ML 100 ML INFUS..BTL IV (10:25)
[2025-03-03 10:35] VITALS: BP 149/70; PULSE 51; RESP 16; O2SAT 100
--- NOTE | 2025-03-03 11:09 | ED.BACK ---
HPI - Back Pain/Injury General Chief Complaint: Back Pain/Injury Stated Complaint: Lower back pain 3 days Time Seen by Provider: 03/03/25 09:00 Source: patient and RN notes reviewed Mode of arrival: ambulatory Limitations: language barrier History of Present Illness ED Provider: Zoya Garcia PA-C HPI Narrative: This is a 49-year-old [place]alese-speaking female who presents emergency department with concerns of right low back pain which started 3 days ago. Patient states that she lifted a heavy box 3 days ago and immediately felt pain in her back. Patient reports that the pain is constant and radiates down right buttock into her right leg, does not go past her right knee. Patient also reports that she has had intermittent nausea, lower abdominal pain. She is eating and drinking without difficulty. She denies any fevers, chills, chest pain, shortness of breath, diarrhea or constipation. Denies any dysuria, hematuria urinary frequency and urgency. Denies any saddle anesthesia, no urinary or bowel retention or incontinence. No other complaints or concerns at this time. MD elicited complaint: back pain Location: lumbar spine Radiation: right upper leg Exacerbating factors: movement Relieving factors: none Context: while lifting Associated symptoms: abdominal pain Related Data Home Medications ?Medication ?Instructions ?Recorded ?Confirmed azelastine 137 mcg (0.1 %) nasal 2 spray intranasal BID 06/12/20 02/20/23 spray cyclobenzaprine 10 mg tablet 10 mg PO DAILY 06/12/20 02/20/23 Previous Rx's ?Medication ?Instructions ?Recorded blood sugar diagnostic (FreeStyle #100 ea 06/26/21 Lite Strips) blood-glucose meter (FreeStyle #1 ea 06/26/21 Lite Meter kit) lancets 28 gauge (FreeStyle #100 ea 06/26/21 Lancets) omeprazole 20 mg capsule,delayed 20 mg PO DAILY 90 days #90 caps 06/26/21 release acetaminophen 500 mg tablet 500 mg PO Q6H PRN fever or pain 05/20/22 (Tylenol Extra Strength) #14 tabs atorvastatin 80 mg tablet 80 mg PO BEDTIME 90 days #90 tabs 04/12/24 dulaglutide 0.75 mg/0.5 mL 0.75 mg (0.5 mL) subcut QWEEK 30 04/12/24 subcutaneous pen injector days #2.5 mL (Trulicity) lidocaine 5 % topical patch 1 patch topical DAILY PRN pain #30 04/12/24 (Lidoderm) ea metformin 500 mg tablet 500 mg PO BID 90 days #180 tabs 04/12/24 ondansetron 4 mg disintegrating 4 mg PO Q8H PRN nausea and 04/12/24 tablet vomiting #14 tabs triamcinolone acetonide 0.5 % 1 appl topical DAILY 30 days #15 04/12/24 topical cream grams cholecalciferol (vitamin D3) 50 50 mcg PO DAILY 90 days #90 caps 02/28/25 mcg (2,000 unit) capsule acetaminophen 500 mg tablet 1,000 mg (2 x 500 mg) PO Q8H PRN 03/03/25 (Tylenol Extra Strength) pain #30 tabs cyclobenzaprine 10 mg tablet 10 mg PO TID PRN muscle spasm #14 03/03/25 tabs lidocaine 5 % topical patch 1 patch topical DAILY #30 ea 03/03/25 Allergies Allergy/AdvReac Type Severity Reaction Status Date / Time aspirin (ASPIRIN) Allergy Intermediate SWELLING, Verified 03/03/25 08:09 anaphylaxis/swelling naproxen (NAPROXEN) Allergy Intermediate LIP Verified 03/03/25 08:09 SWELLING, swelling Review of Systems Review of Systems: Constitutional : No Fever, No Chills ENT/Mouth : No sore throat, No Rhinorrhea Eyes: No Eye Pain, No Swelling, No Redness Cardiovascular : No Chest Pain, No SOB Respiratory : No Cough, No Sputum Gastrointestinal : No Nausea, No Vomiting, No Diarrhea, No abdominal Pain Genitourinary : No Dysuria, No Hematuria Musculoskeletal : No joint pain, No Myalgias, No Joint Swelling Skin : No Skin Lesions Neuro : No Weakness, No Numbness, No Headache All other systems reviewed and are negative Yes all other systems are reviewed and are negative Constitutional: Constitutional: Reports as per [facility] Past Medical History Medical History Multiple lipomas Lipoma of thigh Mild recurrent major depression Severe obesity with body mass index (BMI) of 35.0 to 39.9 with comorbidity Diabetes mellitus type 2 in obese Chest pain Lipoma of arm History of abnormal cervical Pap smear Morbid obesity with BMI of 40.0-44.9, adult Impaired glucose tolerance Dyslipidemia Surgical History S/P tubal ligation History of esophagogastroduodenoscopy (EGD) (~2019) Family History Family History Father HTN (hypertension) Mother Diabetes Arthritis of knee Cancer Paternal Grandfather Heart attack Paternal Aunt Cancer Maternal Uncle Cancer Social History Social History Household Members: Children Household Members Other:: daughter and son Housing: Apartment Alcohol intake: current Alcohol intake frequency: does not drink Patient Tobacco Use Status: Former Tobacco user Tobacco use type: Cigarette Years Smoked: 25 years Smoked in Last 30 Days: Yes e-Cigarette/Vaping Use: Never Used Second Hand Smoke Exposure: Yes Use of substances other than those prescribed or required for medical reasons: Yes Substance Use Type: Marijuana Advance Directives: No Advance Directives Information Provided: No Do you have a plan to hurt others: No Plan service: No Current occupational status: employed Current occupational exposures/hazards: No Cognitive needs: No Hearing needs: No Vision needs: No Physical Exam Vital Signs: Vital Signs: Last Vital Signs Temp 0 F L 03/03/25 13:01 Pulse 49 L 03/03/25 13:01 Resp 18 03/03/25 13:01 BP 170/74 H 03/03/25 13:01 Pulse Ox 98 03/03/25 13:01 O2 Del Method Room Air 03/03/25 13:01 BMI result Body Mass Index 33.3 Const: General: cooperative, comfortable and no acute distress Orientation/consciousness: patient oriented x3 Limitations: no limitations HEENT: Head: Yes normal to inspection, Yes normocephalic and Yes atraumatic Ears: hearing grossly normal bilaterally General nose exam: Normal external nose present Face and sinus: Yes normal facial exam Mouth: Normal oral and palatal mucosa present, oropharynx normal and moist mucous membranes Throat: Yes posterior oropharynx normal Eyes: General: appearance normal, both eyes and all related structures Eyelids: Yes eyelids normal Conjunctivae: conjunctivae normal Sclerae: sclerae normal Pupils: Equal, round and reactive pupils present EOM: EOMs intact bilaterally Neck: Neck: Yes normal visual inspection, Yes full ROM and Yes no lymphadenopathy Lymphatic: no lymphadenopathy noted Chest: Chest palpation & inspection: normal inspection of the chest Resp: Effort & Inspection: normal respiratory effort and able to speak in complete sentences Auscultation: clear to auscultation bilaterally, no crackles, no rales, no rhonchi and no wheezes Cardio: Rate: regular rate Rhythm: regular rhythm Heart sounds: S1 normal heart sound present and S2 normal heart sound present GI: Other: Abdomen is soft with mild tenderness palpation in the suprapubic region, no rebound or guarding. Inspection: Yes normal to inspection Back/Spine/Pelvis: Other: Patient with tenderness palpation along the right SI joint, negative straight leg raise on the right. Strength 5/5 in lower extremities. DTR 2+, no pedal edema noted. No calf tenderness Skin: General skin exam: no rashes or lesions noted Trauma: no lacerations or abrasions Wounds: no wounds Neuro: General: patient oriented x3 and moves all extremities Cranial nerves: Yes Equal, round and reactive pupils present Extrem: General: Yes normal to inspection Right upper extremity: normal to inspection Left upper extremity: normal to inspection Right lower extremity: normal to inspection Left lower extremity: normal to inspection Medications Administered Discontinued Medications Generic Name Dose Route Start Last Admin Trade Name Freq PRN Reason Stop Dose Admin Acetaminophen 1,000 mg in 100 mls @ 400 mls/hr 03/03/25 09:31 03/03/25 10:17 Ofirmev IV 03/03/25 09:45 Infused ONCE ONE Infusion Iohexol 100 ml 03/03/25 10:24 03/03/25 10:25 Iohexol 350 Mg/Ml 100 Ml Infus..Btl IV 03/03/25 10:25 85 ml ONCE ONE Administration Medical Decision Making Medical Decision Making [facility] Narrative: This is a 49-year-old [place]e-speaking female who presents emergency department with concerns of right low back pain which started 3 days ago. On arrival, vital signs within normal limits. She is speaking full sentences under no acute distress. She does have tenderness palpation along the right SI joint. Negative straight leg raise. X-rays were obtained prior to my assessment, no acute osseous findings on x-ray. Given that she is having some abdominal pain as well as nausea, will obtain labs, CT abdomen and pelvis and urinalysis. This patient presents with back pain most consistent with lumbar radiculopathy Differential diagnoses includes lumbago versus musculoskeletal spasm / strain versus sciatica. No back pain red flags on history or physical. Presentation not consistent with malignancy (lack of history of malignancy, lack of B symptoms), fracture (no trauma, no bony tenderness to palpation), cauda equina (no bowel or urinary incontinence/retention, no saddle anesthesia, no distal weakness), pulmonary embolism, renal colic, pyelonephritis (afebrile, no CVAT, no urinary symptoms). CT abdomen and pelvis revealing diverticulosis, as well as uterine fibroid. She is aware of the uterine fibroids, she will follow-up with OBGYN. Symptoms still consistent with lumbar radiculopathy. Will treat with Flexeril, ibuprofen and Tylenol. Given strict return precautions, she is ambulatory with steady gait. Given no red flag back symptoms, patient can be discharged home with strict return precautions. She understands agrees with plan. Patient stable for discharge. Differential Diagnosis Differential Diagnoses: The differential diagnosis associated with the presentation includes See above Admission/Observation Consideration of admission/observation: Escalation of care including admission/observation considered Lab Data MDM Lab Attestation statement: I reviewed the patient's lab results. Patient with no leukocytosis, stable H&H, chemistry with no significant electrolyte derangement, urine with high specific gravity and proteinuria, otherwise noninfectious. 03/03/25 09:46 03/03/25 09:47 Labs: Lab Results 03/03/25 03/03/25 03/03/25 Range/Units 09:46 09:47 11:47 WBC 5.5 (4.8-10.8) X10*3/uL RBC 4.47 (4.20-5.50) X10*6/uL Hgb 13.8 (12.0-16.0) g/dl Hct 38.5 (37.0-47.0) % MCV 86.1 (80.0-98.0) fL MCH 30.9 (27.0-33.0) pg MCHC 35.8 H (31.0-35.0) g/dl RDW 13.0 (11.0-16.0) % Plt Count 220 (160-400) X10*3/uL MPV 10.5 (9.4-12.3) fL Immature Gran % (Auto) 0.2 (0.0-0.4) % Neut % (Auto) 51.1 (45-73) % Lymph % (Auto) 35.2 (20-40) % [place] % (Auto) 9.7 (2-11) % Eos % (Auto) 3.1 (0-4) % Baso % (Auto) 0.7 (0-2) % Lymph # (Auto) 1.9 (1.2-4.9) X10*3/uL [place] # (Auto) 0.5 (0.1-1.2) X10*3/uL Eos # (Auto) 0.2 (0.0-0.4) X10*3/uL Baso # (Auto) 0.0 (0.0-0.2) X10*3/uL Abs Immat Gran (auto) 0.01 (0.00-0.03) X10*3/uL Absolute Neuts (auto) 2.8 (2.0-8.3) x10*3/uL Absolute Nucleated RBC 0.000 (0.0-0.012) X10*3/uL Nucleated RBC % (auto) 0.0 (0.0-0.2) /100WBC Sodium 140 (135-145) mmol/L Potassium 4.1 (3.3-5.1) mmol/L Chloride 110 H (96-108) mmol/L Carbon Dioxide 26 (22-29) mmol/L Anion Gap 8 L (12-20) BUN 12 (9-16) mg/dL Creatinine 0.64 (0.5-1.4) mg/dL Estim Creat Clear Calc 105.9 Estimated GFR > 60 Random Glucose 113 (60-115) mg/dL Calcium 9.2 (8.4-10.2) mg/dL Magnesium 1.9 (1.6-2.6) mg/dL Total Bilirubin 0.5 (0.0-1.0) mg/dL Direct Bilirubin 0.2 (0.0-0.5) mg/dL AST 19 (5-31) U/L ALT 13 (0-31) U/L Alkaline Phosphatase 77 (39-117) U/L Total Protein 7.3 (6.5-8.0) g/dL Albumin 4.4 (3.5-5.0) g/dL Lipase 23 (8-78) U/L Urine Color Yellow Urine Appearance Clear Urine pH 5.5 (5.0-9.0) Ur Specific [place] >= 1.030 H (1.005-1.025) Urine Protein 30 (1+) H (Neg-Trace) mg/dL Urine Glucose (UA) Negative (Negative) mg/dL Urine Ketones Negative (Negative) mg/dL Urine Blood Negative (Negative) Urine Nitrite Negative (Negative) Ur Leukocyte Esterase Negative (Negative) Urine RBC 0-2 (0-2) /HPF Urine WBC 0-5 (0-5) /HPF Ur Squamous Epith Cells 0-2 (0-2) /HPF Urine Bacteria None Seen (None Seen) Hyaline Casts 0-2 (0-2) /LPF Radiology Impression Discussion of test interpretation with radiology: I have reviewed the radiologist's reading. Radiologist Impression: FINDINGS: LOWER CHEST: The visualized lung bases are clear. There is no pleural effusion. CARDIOVASCULATURE: The heart is normal in size. There is no pericardial effusion. LIVER: The liver is normal in size and contour. No liver mass is identified. The hepatic and portal veins are patent. GALLBLADDER / BILE DUCTS: The gallbladder is surgically absent. There is no intra or extrahepatic biliary ductal dilatation. SPLEEN: The spleen is normal in size. No focal splenic lesion is identified. PANCREAS: The pancreas is unremarkable in appearance. ADRENAL GLANDS: Within normal limits. KIDNEYS/RETROPERITONEUM: No renal calculi are identified. There is no hydronephrosis. No renal masses are identified. LYMPH NODES: No abdominal or pelvic lymphadenopathy. VASCULATURE: The abdominal aorta is normal in caliber. MESENTERY/PERITONEUM: No free fluid. No masses. There is no free intraperitoneal gas. STOMACH: The stomach is collapsed, limiting evaluation. SMALL BOWEL: The small bowel is normal in caliber. COLON: There is diverticulosis of the descending and sigmoid colon, without evidence of diverticulitis. APPENDIX: Normal. URINARY BLADDER/PELVIC ORGANS: The urinary bladder is collapsed, limiting evaluation. There is a probable 1.9 cm anterior uterine fibroid. BONES / SOFT TISSUES: No suspicious bony or soft tissue abnormalities. CT/CT abdomen pelvis w IV con IMPRESSION: 1. Diverticulosis of the descending and sigmoid colon, without evidence of diverticulitis. 2. Probable 1.9 cm anterior uterine fibroid. Electronically signed by: Gaurav Murphy MD 03/03/2025 10:36 AM EDT RP Dictated By: Gaurav Murphy MD Discharge Plan Discharge Clinical Impression: Acute lumbar radiculopathy, Diverticulosis Patient Disposition: Home, Self-Care Instructions: Diverticulosis (ED), Acute Low Back Pain (ED), Back Pain (ED) Additional Instructions: You were seen in the emergency department due to back pain. Your symptoms are likely secondary to a muscle spasm, and inflammation causing you to have nerve pain going down into your leg. Please continue taking Tylenol and or ibuprofen as needed for pain. Lidocaine patches can also be beneficial. Flexeril as a muscle relaxants, this may help with your symptoms. Do not drink alcohol or drive while taking this medication. If any new or worsening symptoms occur including but not limited to worsening pain, weakness in her lower extremities, numbness tingling into your groin, please return for re-evaluation. Your CT scan does show evidence of diverticulosis, diverticulosis is that condition that causes small bulging pouches in the wall of the colon. This is a very common disorder, and often times does not have any symptoms. Increasing your fiber intake can be beneficial. Your urine does not appear to be infected. Prescriptions: New cyclobenzaprine 10 mg tablet 10 mg PO TID PRN (Reason: muscle spasm) Qty: 14 0RF acetaminophen [Tylenol Extra Strength] 500 mg tablet 1,000 mg PO Q8H PRN (Reason: pain) Qty: 30 0RF lidocaine 5 % adhesive patch,medicated 1 patch topical DAILY Qty: 30 0RF Rx Instructions: leave on most painful area for up to 12 hrs No Action atorvastatin 80 mg tablet 80 mg PO BEDTIME 90 Days Qty: 90 0RF Trulicity 0.75 mg/0.5 mL pen injector 0.75 mg subcut QWEEK 30 Days Qty: 2.5 6RF lidocaine [Lidoderm] 5 % adhesive patch,medicated 1 patch topical DAILY MDD remove after 12 hours PRN (Reason: pain) Qty: 30 0RF Rx Instructions: leave on most painful area for up to 12 hrs metformin 500 mg tablet 500 mg PO BID 90 Days Qty: 180 1RF ondansetron 4 mg tablet,disintegrating 4 mg PO Q8H PRN (Reason: nausea and vomiting) Qty: 14 0RF triamcinolone acetonide 0.5 % cream 1 appl topical DAILY 30 Days Qty: 15 3RF cholecalciferol (vitamin D3) 50 mcg (2,000 unit) capsule 50 mcg PO DAILY 90 Days Qty: 90 0RF acetaminophen [Tylenol Extra Strength] 500 mg tablet 500 mg PO Q6H PRN (Reason: fever or pain) Qty: 14 0RF cyclobenzaprine 10 mg tablet 10 mg PO DAILY azelastine 137 mcg (0.1 %) aerosol,spray 2 spray intranasal BID omeprazole 20 mg capsule,delayed release(DR/EC) 20 mg PO DAILY 90 Days Qty: 90 1RF (DME) blood-glucose meter [FreeStyle Lite Meter] Kit See Rx Instructions .Route Qty: 1 0RF Rx Instructions: As directed (DME) FreeStyle Lite Strips Strip See Rx Instructions .Route Qty: 100 3RF Rx Instructions: Use 1 test strip once a day (DME) lancets [FreeStyle Lancets] 28 gauge misc See Rx Instructions .Route Qty: 100 3RF Rx Instructions: Use 1 lancet once a day Stand Alone Forms: Work/School Release Interventions: ED Discharge Assessment Last Done: 03/03/25 13:01 Discharge Date/Time: 03/03/25 13:02 Print Language: Sen[place]alese
[2025-03-03 11:54] LABS: Appearance Urine Clear; Glucose Urine UA Negative (Negative); PH 5.5 (5.0-9.0); Specific Gravity - Urine >= 1.030 (1.005-1.025); UMIC TRIGGER UACC YES
[2025-03-03 12:51] VITALS: BP 170/74; PULSE 49; RESP 18; O2SAT 98
[2025-03-03 13:01] VITALS: BP 170/74; PULSE 49; RESP 18; TEMP -17.7; TEMP 0; O2SAT 98
== END 2025-03-03 13:02 | disposition home or self-care (01) ==
PROVIDERS: Physician Assistant Medical; Emergency Provider Emergency Medicine; PCP Internal Medicine
DX: M54.16 Radiculopathy, lumbar region (principal); K57.90 Diverticulosis of intestine, part unspecified, without perforation or abscess without bleeding; R10.32 Left lower quadrant pain; M54.50 Low back pain, unspecified
CPT/HCPCS: 36415; 72100; 74177; 80048; 80076; 81001; 83690; 83735; 85025; 96365; 99285; J0131; Q9967

== ENCOUNTER → 2025-03-03 08:10 | Outpatient (BNV) | payer OTHER, SELFPAY | PROVIDERS: Emergency Provider Emergency Medicine; PCP Internal Medicine; Visit Provider Radiology Diagnostic Ultrasound | DX: K57.30 Diverticulosis of large intestine without perforation or abscess without bleeding (principal); D25.9 Leiomyoma of uterus, unspecified; M54.50 Low back pain, unspecified | CPT/HCPCS: 72100; 74177 ==

== ENCOUNTER 2025-03-15 15:51 | Outpatient (AMB) | payer OTHER, SELFPAY ==
--- NOTE | 2025-03-15 16:40 | A.OFFPC_ITS ---
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 Required: No Cfa: Not Required per policy Accompanied by: Self / Same As Patient Allergies aspirin (ASPIRIN) Allergy (Intermediate, Verified 03/15/25 16:58) SWELLING, anaphylaxis/swelling dulaglutide (From Trulicity) Allergy (Intermediate, Verified 03/15/25 16:58) Itching naproxen (NAPROXEN) Allergy (Intermediate, Verified 03/15/25 16:58) LIP SWELLING, swelling Medication List - Last Reconciled 03/15/25 by Eva Mtz MD acetaminophen (Tylenol Extra Strength) 1,000 mg (2 x 500 mg) PO Q8H PRN atorvastatin 80 mg PO BEDTIME 90 days azelastine 2 sprays intranasal BID blood sugar diagnostic (FreeStyle Lite Strips) Use 1 test strip once a day blood-glucose meter (FreeStyle Lite Meter kit) As directed cholecalciferol (vitamin D3) 50 mcg PO DAILY 90 days cyclobenzaprine 10 mg PO TID PRN lancets (FreeStyle Lancets) Use 1 lancet once a day lidocaine 5% 1 patch topical DAILY metformin 500 mg PO BID 90 days omeprazole 20 mg PO DAILY 90 days ondansetron 4 mg PO Q8H PRN triamcinolone acetonide 0.5% 1 appl topical DAILY 30 days Tobacco use date assessed: 03/15/25 Dental Screening Dental Screen Date: 03/15/25 Did you have a dental visit in the last 12 months?: No Did you have a dental problem in the last 6 months where you did not have access to dental care?: No Was dental information given to patient?: No HPI HPI Comments History of Present Illness Details The patient is a 49-year-old female presenting with hypertension management and evaluation of diverticulosis. Hypertension has been a concern, with previous measurements indicating elevated levels, although recent readings show some improvement. The patient has a history of smoking, which she has attempted to quit multiple times, citing blood pressure concerns as a motivating factor. She also has history of diabetes mellitus type 2 but her A1c is 5.7% and she has been out of metformin for about a year. Diverticulosis was identified during a recent abdominal CT scan conducted earlier this month. The condition is currently asymptomatic, with no signs of infection noted. The patient also has a uterine fibroid, which is being managed by gynecology. Allergies to aspirin, Trulicity, and naproxen have been noted, with reactions including itching and lip swelling. [facility] Medical History (Updated 03/15/25 @ 20:59 by Eav Mtz MD) Morbid obesity with BMI of 40.0-44.9, adult Multiple lipomas Lipoma of thigh Mild recurrent major depression Severe obesity with body mass index (BMI) of 35.0 to 39.9 with comorbidity Diabetes mellitus type 2 in obese Chest pain Lipoma of arm History of abnormal cervical Pap smear Morbid obesity with BMI of 40.0-44.9, adult Impaired glucose tolerance Dyslipidemia Surgical History History of hernia surgery S/P tubal ligation History of esophagogastroduodenoscopy (EGD) (~2019) Family History Father HTN (hypertension) Mother Diabetes Arthritis of knee Cancer Paternal Grandfather Heart attack Paternal Aunt Cancer Maternal Uncle Cancer Social History (Updated 03/15/25 @ 17:04 by Eva Mtz MD) Household Members: Children Household Members Other:: daughter and son Housing: Apartment Alcohol intake: former Patient Tobacco Use Status: Former Tobacco user Tobacco use type: Cigarette Years Smoked: 25 years e-Cigarette/Vaping Use: Never Used Second Hand Smoke Exposure: Yes Substance Use Type: Marijuana service: No Current occupational status: employed Current occupational exposures/hazards: No Cognitive needs: No Hearing needs: No Vision needs: No Female Reproductive History Menstrual Age of Menarche: 12 Questionnaire PHQ-9 Over the last 2 weeks, how often have you been bothered by any of the following problems? 1. Little interest or pleasure in doing things: more than half the days 2. Feeling down, depressed, or hopeless: several days 3. Trouble falling or staying asleep, or sleeping too much: several days 4. Feeling tired or having little energy: several days 5. Poor appetite or overeating: several days 6. Feeling bad about yourself - or that you are a failure or have let yourself or your family down: several days 7. Trouble concentrating on things, such as reading the newspaper or watching television: several days 8. Moving or speaking so slowly that other people could have noticed. Or the opposite - being so fidgety or restless that you have been moving around a lot more than usual: not at all 9. Thoughts that you would be better off or of hurting yourself in some way: not at all Total score: 8 Depression Screening Interpretation: Positive Depression Screening Follow-up: Existing condition and Follow-up Visit Requested Depression Screening Done: Yes 84208 - PHQ-9 Billing: Yes Source: Developed by Drs. Gaurav Mcintyre, Karen Israel, Krystian Adams and colleagues, with an educational sukh from [employer]. Thrive Questionnaire Date Thrive assessed: 03/15/25 I am a: Patient What is your living situation today?: I have a steady place to live Within the past 12 months, did the food you bought not last and you didn't have the money to get more?: Sometimes True Within the past 12 months, did you worry whether your food would run out before you got money to buy more?: Sometimes True Do you have trouble paying for medicines?: No Do you have trouble getting transportation to medical appointments?: No Do you have trouble paying your heating and electricity bill?: Yes Do you have trouble taking care of your child, family member or friend?: No Do you have trouble with day-to-day activities such as bathing, preparing meals, shopping, managing finances, etc.?: No Are you currently unemployed and looking for a job?: Yes Are you interested in more education?: No Please select the resources that you would like help with: None Currently or been in a relationship where the following occur: No concerns reported THRIVE Score: 3 AUDIT C Alcohol Use Questionnaire (AUDIT-C) 1. How often do you have a drink containing alcohol?: Never Total Score: 0 Score Reviewed/Action Taken: No ODALYS-7 AMB Questionnaire ODALYS-7 Date ODALYS - 7 assessed: 03/15/25 Feeling nervous, anxious, or on edge: 0 = Not at all Not being able to stop or control worryin = Several days Worrying too much about different things: 1 = Several days Trouble relaxin = Several days Being so restless that it is hard to sit still: 1 = Several days Becoming easily annoyed or irritable: 1 = Several days Feeling afraid as if something awful might happen: 1 = Several days Total ODALYS-7 score (0-4 normal; 5-9 mild; 10-14 moderate; 15-21 severe): 6 Source: Developed by Drs. Gaurav Mcintyre, Karen Israel, Krystian Adams and colleagues, with an educational sukh from [employer]. ODALYS-7 Assessment Billing ODALYS-7 Assessment Tool: ODALYS-7 Assessment 27292 Review of Systems Const All systems reviewed & are unremarkable except as noted in HPI and below Card Denies chest pain at rest, Denies chest pain with activity, Denies edema, Denies irregular heart rhythm, Denies claudication, Denies dyspnea, Denies dyspnea on exertion, Denies orthopnea, Denies paroxysmal nocturnal dyspnea and Denies slow heart rate Resp Denies cough, Denies dyspnea and Denies dyspnea on exertion Physical exam (Primary Care) Vital Signs: Last Vital Signs Temp 97.3 F 03/15/25 16:43 BP 140/60 H 03/15/25 16:43 BMI result Body Mass Index 33.5 BMI Assessment/Plan discussion: High BMI High, discussed plan: lifestyle, weight reduction, dietary and physical activity Tobacco/Smoking Status: Tobacco use Status Tobacco use date assessed 03/15/25 03/15/25 16:50 Patient Tobacco Use Status Former Tobacco user 03/15/25 17:04 Tobacco use type Cigarette 03/15/25 17:04 e-Cigarette/Vaping Use Never Used 03/15/25 17:04 PHQ-9: PHQ-9 Score PHQ-9: Total score 8 03/15/25 17:02 Depression Screening Interpretation: Positive Depression Screening Follow-up: Existing condition and Follow-up Visit Requested Thrive Assessment: Date of Thrive Assessment Date Thrive assessed 03/15/25 03/15/25 16:40 Currently or been in a relationship where the following occur: No concerns reported Resp Effort & Inspection: normal respiratory effort Auscultation: clear to auscultation bilaterally Cardio Jugular venous distension: no JVD Rate: regular rate Rhythm: regular rhythm Heart sounds: S1 normal heart sound present and S2 normal heart sound present Extrem General: Yes full ROM Results AMB Hemoglobin A1c AMB Hemoglobin A1c 5.7 % Last Edit by GILDA Llamas on 03/15/25 16:52 Results Reviewed Results Reviewed: Laboratory Last Values Hgb A1c (Clinic) 5.7 % (4.0-6.0) 03/15/25 16:41 Coding Level of Care Code Est Pt Level 4 (24378) Diagnoses Diabetes mellitus type 2 in obese E11.69; E66.9 Mild recurrent major depression F33.0 Hyperlipidemia LDL goal <70 E78.5 Essential hypertension I10 Additional Codes ODALYS-7 Assessment Billing - ODALYS-7 Assessment Tool: ODALYS-7 Assessment 13200 ([id number]) PHQ-9 - 86499 - PHQ-9 Billing: Yes ([id number]) Assessment & Plan Assessment & Plan (1) Diabetes mellitus type 2 in obese: Code(s): E11.69 - Type 2 diabetes mellitus with other specified complication; E66.9 - Obesity, unspecified Category: Medical (2) Mild recurrent major depression: Code(s): F33.0 - Major depressive disorder, recurrent, mild Category: Medical (3) Hyperlipidemia LDL goal <70: Code(s): E78.5 - Hyperlipidemia, unspecified Category: Medical (4) Essential hypertension: Code(s): I10 - Essential (primary) hypertension Category: Medical Plan Plan 1. Essential hypertension The patient will be prescribed medication to manage blood pressure, with a follow-up scheduled in three weeks to monitor progress. 2. Diverticulosis The condition is currently asymptomatic, and no immediate intervention is required. Monitoring for potential infection is advised. 3. Hyperlipidemia Continue statins. 4. Diabetes mellitus Start metformin. Orders: Orders AMB Hemoglobin A1c Today E11.69 - Type 2 diabetes mellitus with other specified complication, E66.9 - Obesity, unspecified Microalbumin, Random (w Creat) Today R80.9 - Proteinuria, unspecified Lipid Panel Today E78.5 - Hyperlipidemia, unspecified Vitamin D 25-OH Total Today E55.9 - Vitamin D deficiency, unspecified Comprehensive [place]. Panel Fast Today E11.69 - Type 2 diabetes mellitus with other specified complication, E66.9 - Obesity, unspecified Medications: New lisinopril 5 mg PO DAILY 90 tabs 1RF 90 days Refilled cyclobenzaprine 10 mg PO TID PRN 14 tabs 0RF muscle spasm triamcinolone acetonide 0.5% 1 appl topical DAILY 15 grams 3RF 30 days atorvastatin 80 mg PO BEDTIME 90 tabs 0RF 90 days Discontinued metformin Discontinued Reason: Patient Completed Course 500 mg PO BID 90 days 180 tabs 1RF
[2025-03-15 16:43] VITALS: BP 140/60; TEMP 36.3; BMI 33.5
== END 2025-03-15 17:09 | disposition home or self-care (01) ==
LOC: HO.HMCH 15:52
PROVIDERS: Visit Provider Internal Medicine
DX: E11.69 Type 2 diabetes mellitus with other specified complication (principal); E66.9 Obesity, unspecified; Z68.33 Body mass index [BMI] 33.0-33.9, adult; F33.0 Major depressive disorder, recurrent, mild; E78.5 Hyperlipidemia, unspecified; I10 Essential (primary) hypertension

== ENCOUNTER → 2025-03-15 15:51 | Outpatient (BNVA) | payer OTHER, SELFPAY | PROVIDERS: Visit Provider Internal Medicine | DX: I10 Essential (primary) hypertension (principal); K57.90 Diverticulosis of intestine, part unspecified, without perforation or abscess without bleeding; E11.69 Type 2 diabetes mellitus with other specified complication; F33.0 Major depressive disorder, recurrent, mild; E78.5 Hyperlipidemia, unspecified; E66.9 Obesity, unspecified; F17.210 Nicotine dependence, cigarettes, uncomplicated; Z68.33 Body mass index [BMI] 33.0-33.9, adult | CPT/HCPCS: 83036; 96127; 99212 ==